=== PATIENT | male | born 1950 | race Caucasian/White ===

== ENCOUNTER → 2020-07-07 10:41 | Outpatient (BNVA) | payer OTHER, SELFPAY | PROVIDERS: Referring Provider Family Medicine; Visit Provider Specialist | DX: M19.011 Primary osteoarthritis, right shoulder (principal); M25.512 Pain in left shoulder; M25.511 Pain in right shoulder | CPT/HCPCS: 73030 ==

== ENCOUNTER 2020-07-09 20:00 | Outpatient (CLI) | payer OTHER, SELFPAY | END 2020-07-09 20:01 | disposition home or self-care (01) | LOC: SLEEP 07-10 08:30 | PROVIDERS: Visit Provider Emergency Medicine Emergency Medical Services | DX: G47.33 Obstructive sleep apnea (adult) (pediatric) (principal) | CPT/HCPCS: 95810 ==

== ENCOUNTER 2020-07-10 08:30 | Outpatient (RCR) | payer OTHER, SELFPAY | END 2020-07-27 23:59 | disposition home or self-care (01) | LOC: SPT 08:30 | PROVIDERS: PCP Emergency Medicine Emergency Medical Services; Referring Provider Specialist; Visit Provider Specialist | DX: M25.512 Pain in left shoulder (principal); M25.511 Pain in right shoulder | CPT/HCPCS: 97110; 97161 ==

== ENCOUNTER 2020-07-28 06:00 | Outpatient (RCR) | payer OTHER, SELFPAY | END 2020-08-27 23:59 | disposition home or self-care (01) | LOC: SPT 06:00 | PROVIDERS: PCP Emergency Medicine Emergency Medical Services; Referring Provider Specialist; Visit Provider Specialist | DX: M25.512 Pain in left shoulder (principal); M25.511 Pain in right shoulder | CPT/HCPCS: 97110 ==

== ENCOUNTER 2020-07-29 20:00 | Outpatient (CLI) | payer OTHER, SELFPAY | END 2020-07-29 20:01 | disposition home or self-care (01) | LOC: SLEEP 07-30 08:52 | PROVIDERS: PCP Emergency Medicine Emergency Medical Services; Visit Provider Emergency Medicine Emergency Medical Services | DX: G47.33 Obstructive sleep apnea (adult) (pediatric) (principal) | CPT/HCPCS: 95811 ==

== ENCOUNTER 2020-08-28 06:00 | Outpatient (RCR) | payer OTHER, SELFPAY | END 2020-09-26 23:59 | disposition home or self-care (01) | LOC: SPT 06:00 | PROVIDERS: PCP Emergency Medicine Emergency Medical Services; Referring Provider Specialist; Visit Provider Specialist | DX: M25.512 Pain in left shoulder (principal); M25.511 Pain in right shoulder | CPT/HCPCS: 97110 ==

== ENCOUNTER 2020-10-18 19:23 | Inpatient (IN) | payer OTHER, MEDICARE, SELFPAY ==
[2020-10-18] VITALS (19 sets, daily range): BP systolic 115–175; BP diastolic 68–102; PULSE 76–90; RESP 14–26; TEMP 36.7; O2SAT 95–99; BMI 30.4
--- NOTE | 2020-10-18 19:31 | ECG_ITS ---
[facility] Test Date: 2020-10-18 Pat Name: Bhavik Gaffney Department: Room: Gender: Male Air Director: : 1950 Requested By: Jhony Bernabe Order Number: [id number] Shira MD: Triston Giron M.D. Measurements Intervals [place] Rate: 83 P: 64 MT: 173 QRS: 77 QRSD: 90 T: 70 QT: 347 QTc: 410 Interpretive Statements SINUS RHYTHM ST ELEVATION, CONSIDER INFERIOR INJURY [MARKED ST ELEVATION W/O NORMALLY INFLECTED T WAVE IN II/aVF] ACUTE HI No previous ECG available for comparison Electronically Signed On 10-19-2020 15:34:10 CDT by Triston Giron M.D. [id number] f
--- NOTE | 2020-10-18 19:31 | XRR_ITS ---
PROCEDURE INFORMATION: Exam: XR Chest Exam date and time: 10/18/2020 7:34 PM Age: 70 years old Clinical indication: Pain; Chest pressure; Additional info: Cp TECHNIQUE: Imaging protocol: XR of the chest. Views: 1 view. COMPARISON: No relevant prior studies available. FINDINGS: Lungs: Unremarkable. No consolidation. Pleural spaces: Unremarkable. No pleural effusion. No pneumothorax. Heart/Mediastinum: Mild cardiomegaly. Bones/joints: Unremarkable. XR/XR chest 1V portable 23140 IMPRESSION: 1. Negative for infiltrate. 2. Mild cardiomegaly.
[2020-10-18 19:47] LABS: Basophils % 0.3 %; Eosinophils # 0.2 10^3/uL (0.0-0.8); Eosinophils % 2.4 %; Hemoglobin 16.2 g/dL (11.7-16.6); Lymphocytes # 0.5 10^3/uL (0.8-4.8); Lymphocytes % 7.6 %; Mean Corpuscular HGB Conc 34.5 g/dL (30.0-36.0); Mean Corpuscular Volume 92.7 fL (80-94); Mean Platelet Volume 9.8 fL (7.4-10.4); Monocytes # 0.4 10^3/uL (0.2-0.9); Monocytes % 6.3 %; Neutrophils # 5.77 10^3/uL (1.8-7.7); Neutrophils % 83.1 %; Nucleated Red Blood Cells % 0 %; Platelet Count 136 10^3/cmm (130-400); Red Blood Count 5.07 10^6/uL (4.1-5.3); Red Cell Distribution Width 13.1 % (12.1-15.1)
[2020-10-18] MEDS: clopidogrel 300 mg Tablet 600 MG PO (19:48)
[2020-10-18] MEDS: aspirin 81 mg Chew Tablet PO ×3 (19:48)
[2020-10-18] MEDS: heparin 5,000 unit/mL INJ 1 mL 4000 UNIT IVP (19:49)
[2020-10-18] MEDS: heparin drip 25,000 UNIT/500 ML PREMIX 25.4 UNIT IV (19:58)
[2020-10-18 20:04] LABS: Troponin(5th) Baseline 34 ng/L (0-15)
[2020-10-18 20:07] LABS: Alanine Aminotransferase 21 U/L (0-41); Albumin Level 4.4 g/dL (3.5-5.2); Alkaline Phosphatase 136 IU/L (40-130); Anion Gap 21.1 (5-19); Aspartate Amino Transferase 23 U/L (0-40); Blood Urea Nitrogen 17 mg/dL (8-23); Calcium 9.1 mg/dL (8.5-10.5); Carbon Dioxide 16 mmol/L (22-29); Chloride 104 mmol/L (98-107); Globulin 2.9 g/dL (1.3-4.6); Glucose 174 mg/dL (65-115); Osmolality Calculated 290 mOsm/kg (285-295); Potassium 4.1 mmol/L (3.5-5.1); Sodium 137 mmol/L (136-145); Total Bilirubin 0.6 mg/dL (0.15-1.2); Total Protein 7.3 g/dL (6.6-8.7)
--- NOTE | 2020-10-18 20:11 | P.HP_ITS ---
Providers/Chief Complaint Admitting Physician: Triston Giron MD/ Cardiology Primary Care Provider: Paul Stewart DO Chief Complaint: chest pain History of Present Illness Bhavik Gaffney is a 70 year old male with past medical history of hypertension, hyperlipidemia and diabetes who has presented with chest pain symptoms. According to patient he has been having chest pain on and off since last night. It got worse this evening and he called the MD nurse who advised him to come to the ER. According to patient he is currently having chest pain however it has decreased in intensity. EKG demonstrates inferior lead ST elevations with reciprocal changes. STEMI was activated. 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 He underwent successful revascularization with ANDRIY x1. He is proximal to mid LAD has severe 70 to 75% stenosis. This will be planned for revascularization as a staged procedure. Review of Systems General: Reports: 10 or more systems reviewed and unremarkable except in HPI and below Narrative: CONSTITUTIONAL: No fever chills weight loss or gain or night sweats. [] HEENT: Normocephalic, atraumatic.[] RESPIRATORY: No cough, sputum, hemoptysis or wheezing.[] CARDIOVASCULAR: Has chest pain, no PND, orthopnea, lower extremity edema, pres yncope or syncope. [] GI: no nausea vomiting diarrhea. [] FIELD BROOMER: No numbness, tingling, weakness or loss of function in any part of the body. [] MUSCULOSKELETAL: No knee or joint pain or rashes. [] Medications/Allergies Home Medications Medication Instructions Recorded Confirmed Last Taken Type acetaminophen 500 mg tablet 500 mg PO QID PRN 07/07/20 09/11/20 Unknown History amlodipine 10 mg tablet 10 mg PO DAILY 07/07/20 09/11/20 Unknown History aspirin 81 mg tablet,delayed 81 mg PO DAILY 07/07/20 09/11/20 Unknown History release cholecalciferol (vitamin D3) 1,250 PO 07/07/20 09/11/20 Unknown History mcg (50,000 unit) tablet gabapentin 300 mg capsule 300 mg PO TID 07/07/20 09/11/20 Unknown History insulin aspart U-100 100 unit/mL 20 unit SUBCUT BID 07/07/20 09/11/20 Unknown History (3 mL) subcutaneous pen insulin glargine 100 unit/mL (3 20 unit SUBCUT BID 07/07/20 09/11/20 Unknown H istory mL) subcutaneous pen levothyroxine 125 mcg capsule 125 mcg PO DAILY 07/07/20 09/11/20 Unknown History losartan 50 mg tablet 50 mg PO DAILY 07/07/20 09/11/20 Unknown History melatonin 3 mg capsule 3 mg PO DAILY 07/07/20 09/11/20 Unknown History mirtazapine 15 mg tablet 15 mg PO DAILY 07/07/20 09/11/20 Unknown History omeprazole 20 mg tablet,delayed 20 mg PO DAILY 07/07/20 09/11/20 Unknown History release simvastatin 10 mg tablet 10 mg PO DAILY 07/07/20 09/11/20 Unknown History topiramate 50 mg tablet 50 mg PO BID 07/07/20 09/11/20 Unknown History Allergies Allergy/AdvReac Type Severity Reaction Status Date / Time No Known Allergies Allergy Verified 10/18/20 19:45 PFSH Acute PFSH: Medical History Diabetes Diverticul disease small and large intestine, no perforati or abscess Hernia Hyperlipidemia Hypertension Squamous cell cancer of scalp and skin of neck Surgical History History of bowel resection Family History Father Suicide Psychiatric illness Mother Cancer Hypertension Social History Smoking and tobacco status: former smoker Alcohol intake: current Desire information about alcohol rehabilitation?: No Counseling given: No Vitals/I&O/Wt Last Vital Signs Temp 98.1 F 10/18/20 19:35 Pulse 80 10/18/20 20:07 Resp 16 10/18/20 20:07 BP 139/68 10/18/20 20:07 Pulse Ox 97 10/18/20 20:07 Weight last 48 hrs Weight 200 lb Physical Exam Narrative: EXAM NARRATIVE: GENERAL: Patient is alert, awake and oriented x3. [] NECK: No jugular vein distension. [] HEENT: No cyanosis. No icterus. No pallor. [] HEART: Regular S1 and S2. No murmur, rub or gallop. [] LUNGS: Clear to auscultate bilaterally. [] ABDOMEN: Soft, nontender and nondistended. Positive bowel sounds. No guarding, rebound or tenderness. [] CENTRAL NERVOUS SYSTEM: Grossly nonfocal. [] EXTREMITIES: Lower extremities with no edema bilaterally. Pulses palpable in the lower extremities, both dorsalis pedis and posterior tibial. [] Data : 10/18/20 19:13 10/18/20 19:13 A&P Assessment and plan (1) Acute ST elevation myocardial infarction: Status: Acute (2) Hyperlipidemia: Status: Acute (3) Hypertension: Status: Acute (4) Diabetes: Status: Acute EKG demonstrates acute inferior ST elevation PR. 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 He underwent successful revascularization with ANDRIY x1. He has residual severe proximal to mid LAD stenosis. This will be revascularized as a staged procedure as outpatient. Continue aspirin and Plavix Statin therapy. According to patient he has not tolerated atorvastatin and is currently on simvastatin. Order echocardiogram Patient will be referred to cardiac rehab at discharge. We will have sliding scale insulin for diabetes management Attestations Medical Necessity Statement*: Care expected to cross 2 midnights. Patient had presented with acute ST elevation PR and underwent successful revascularization with ANDRIY x1 to mid left circumflex artery. Coding Level of Care Code Acute Sales Representative Electric Service for Meliton Farr Diagnoses Acute ST elevation myocardial infarction I21.3 Hyperlipidemia E78.5 Hypertension I10 Diabetes E11.9
--- NOTE | 2020-10-18 20:12 | XACV_ITS ---
Ht: 173 cm Wt: 91 kg BSA: 2.11 m2 Gender: Male : 1950 Exam Priority: Routine Procedure(s): Procedure Description: Left Heart Catheterization Procedure Description: Primary PCI of mid Left circumflex artery Procedure Description: Coronary angiogram Diagnostic Cath Status: Emergency Diagnostic Findings * Mid Circumflex: total thrombotic occlusion, SAV: 0 flow. This is the culprit vessel for the STEMI. * Mid Left Anterior Descending: severe obstructive 70-75% stenosis, SAV: 3 flow. * Left Main has no disease. * Proximal Right Coronary Artery: moderate 50% stenosis, SAV: 3 flow. * Coronary angiography shows right dominance. PCI Status: Emergency PCI Indication: STEMI - Immediate PCI for STEMI Interventional Findings * Procedure details: We engaged left main artery with a XB 3.5 guide catheter. IV heparin was administered to maintain an ACT above 250 seconds. A 0.014 run-through guidewire was used to cross the stenosis and was placed in distal vessel. 2.5 x 12 mm semicompliant balloon was used to predilate the stenosis. This was followed by placement of 4.0 x 18 mm resolute Anjali drug-eluting stent. At this time final angiogram was performed that showed excellent stent expansion, SAV-3 flow and no residual stenosis. Guidewire and guide catheter were removed. Patient left the Casting Sorter in a stable condition. * Mid Circumflex: 100% stenosis treated with a AB TREK 2.50X12 RX BALLOON, and MDT R ANJALI 4.0X18 ANDRIY. 0% residual stenosis, SAV: 3 flow. Conclusions 1. There is total thormbotic occlusion of mid left circumflex artery. 2. Severe proximal to mid LAD stenosis. 3. Moderate proximal RCA stenosis. 4. Mid Circumflex was treated with a Balloon, and Drug Eluting Stent. Recommendations * Transfer to [facility]SU. * Aspirin and Plavix for atleast 1 year. * High intensity statin therapy. * Patient will need staged PCI of the proximal to mid LAD in 4-6 weeks. * Outpatient cardiology follow up in 4-6 weeks. Interventional RX Recommendation: PCI w/o planned CABG Diagnostic RX Recommendation: PCI w/o planned CABG Anticoagulation: Heparin Pressures Phase:Rest AO : 114 / 61 ( 85 ) @ 3:24:00 AM Clinical Evaluation EBL: 5mL-10mL Procedural Details Pre-Procedure Time Out. Identified patient by full name and date of as verbalized by the patient/guarantor. Does the consent match the physician's order: N/A Emergent; Informed Consent not obtained due to time critical life threat. Accurate & Complete Informed Consent: N/A Emergent; Informed Consent not obtained due to time critical life threat. Inpatient/Outpatient History & Physical on Chart: N/A Emergent; Informed Consent not obtained due to time critical life threat. If H&P is completed, is and addenduem needed: N/A Emergent; Informed Consent not obtained due to time critical life threat; If yes, is the addendum complete: N/A Emergent; Informed Consent not obtained due to time critical life threat. Visualize and Verify Site with Patient/Guarantor: N/A. Relevant Radiology Images available: N/A Emergent; Informed Consent not obtained due to time critical life threat. Pre-op teaching completed and patient verbalized understanding. The risks, benefits, and alternatives of sedation and/or procedure were discussed by physician. The patient agrees to continue. Procedure started. Current diagnosis: STEMI. PERRLA. Strong, equal hand credit rating checker bilaterally. Lungs clear x 5 lobes. IV Site on Arrival: 18 gauge in the left anticubital. IV Site on Arrival: 18 gauge in the right anticubital. IV Fluids: 0.9% NaCl at KVO. 200 mL infused prior to rn cardiac cath. Oxygen started at 2liters/min via nasal canula. right groin was prepped with chloroprep then draped in the usual sterile fashion. right radial was prepped with chloroprep then draped in the usual sterile fashion. Baseline sample Acquired. HR: 94 BPM. Physician notified. Equipment: 6F - Radial. Cardiac Cath Pack. ACIST Manifold Kit Model BT 2000. Heparinized Saline (2 units/mL), 1000 mL bag. Physician arrived. Physician scrubbed in. Immediate Pre-Procedure Time Out. Correct Patient: Yes; Correct Procedure: Yes; Correct Site: Yes; Correct Patient Position: Yes; Correct Supplies: Yes; Dried Flammable Prep: Yes; Blood Products Available: N/A Emergent; Informed Consent not obtained due to time critical life threat;. Lidocaine 1% infiltrated to the right radial. Arterial access obtained. A 6 cymro TIG catheter in over wire. Multiple views taken of right coronary artery. Catheter redirected to the LCA. Multiple views taken of left coronary artery. Catheter inserted over the exchange wire. 6 cymro XB 3.5 guide catheter was inserted over the wire. Runthrough guidewire was advanced through the guide catheter to lesion in the mid Circ. Balloon inserted to lesion in the mid Circ. Inflation number : 1 A AB TREK 2.50X12 RX BALLOON was prepped and advanced across the Mid CX , then inflated to 8 DASHA for 0:09 seconds. Inflation number: 2 The AB TREK 2.50X12 RX BALLOON was reinflated across the Mid CX, to 12 DASHA for 0:31 seconds. Balloon out. Results checked. Stent inserted to lesion in the mid Circ. Inflation Number : 3 A DAIN R ANJALI 4.0X18 ANDRIY -Lot Number#[id number] was prepped and advanced across the Mid CX. The stent was deployed at 12 DASHA for 0:31 seconds. exp 2022-07-16. Results checked. Stent balloon out over wire. Wire out. Guide catheter out. ACT drawn. Results 205 seconds. Therapeutic limits - pre-heparin administration 90-150 seconds and monitoring heparin during a vascular procedure >250 seconds. TR band placed. Hemostasis obtained. Post-op diagnosis: stemi acute st mi. mid cix. Complications: none. Contrast type used: Omnipaque 300 mgI/mL, 500 mL bottle. PERRLA. Strong, equal hand credit rating checker bilaterally. No VTE prophylaxis required. Estimated blood loss: 5mL-10mL. Medication's Wasted: Lidocaine 1% = 18 mL. Medication's Wasted: Nitro = 48.9 mL. Total IV fluids: 75 mL. Medication's Wasted: Heparin = 3000 units. PCI Indication: STEMI. Procedure completed. Patient transferred by wheelchair to 1st floor. Vital chart was stopped. Access Site Site: Right Radial artery Sheath Size: 6 Fr Hemostasis Success: Unsuccessful Procedure Medications Start: 8:24 PM Stop: 8:24 PM Medication: Fentanyl Amount: 50 mcg Route: I.V. Start: 8:24 PM Stop: 8:24 PM Medication: Versed Amount: 1 mg Route: I.V. Start: 8:26 PM Stop: 8:26 PM Medication: Nitrogylcerin Amount: 200 mcg Route: I.A. Start: 8:26 PM Stop: 8:26 PM Medication: Versed Amount: 1 mg Route: I.V. Start: 8:28 PM Stop: 8:28 PM Medication: Heparin Amount: 6000 units Route: I.V. Start: 8:32 PM Stop: 8:32 PM Medication: Fentanyl Amount: 50 mcg Route: I.V. Start: 8:39 PM Stop: 8:39 PM Medication: Versed Amount: 1 mg Route: I.V. Start: 8:44 PM Stop: 8:44 PM Medication: Nitrogylcerin Amount: 200 mcg Route: I.C. Start: 8:44 PM Stop: 8:44 PM Medication: Aggrastat 12.5 mg/250 mL Amount: 46 ml Route: I.V. bolus Start: 8:47 PM Stop: 8:47 PM Medication: Versed Amount: 1 mg Route: I.V. Start: 8:55 PM Stop: 8:55 PM Medication: Heparin Amount: 2000 units Route: I.V. I, the attending physician, have reviewed and verified all procedure medications. Yes, all medications given per verbal order Report Signatures Finalized by Triston Giron MD on 10/31/2020 06:56 PM
--- NOTE | 2020-10-18 20:15 | NUR.SHIFT ---
PATIENT TRANSPORTED TO ELECTRIC METER INSPECTOR VIA CATH TEAM
--- NOTE | 2020-10-18 20:18 | ED_ITS ---
HPI - Chest Pain General: Chief Complaint: Chest Pain Stated Complaint: chest pain Time Seen by Provider: 10/18/20 19:35 History of Present Illness: HPI narrative: The patient is a 70-year-old male who comes to the ER complaining of left-sided chest pain that radiates to his left shoulder and left jaw. He said it started yesterday and reports it as a pressure sensation 6 out of 10. He denies previous myocardial infarction history. History of diabetes as well. EKG shows inferior ST [facility]. STEMI alert activated as soon as the EKG was printed. Discussed with Dr. Giron who is in route and recommends Plavix and heparin. complaint: chest pain Onset (ago): hour(s) (24) Timing of current episode: constant Onset: during rest Pain location: left chest Pain radiation: left arm and left shoulder Severity: moderate Pain scale (0-10): 6 Quality: other (Pressure) Relieving factors: rest Exacerbating factors: exertion Associated symptoms: Reports dyspnea and nausea; Deny palpitations Treatment prior to arrival: aspirin (Baby aspirin) Review of Systems General: Reports: 10 or more systems reviewed and unremarkable except in HPI and below Const: Denies: fatigue Eyes: Denies: change in vision, blurry vision or eye redness ENMT: Denies: throat pain, swelling of lips/tongue, ear or mastoid pain or nasal congestion Card: Reports: chest pain; Denies: palpitations, irregular heart rhythm, edema, dyspnea on exertion or orthopnea Resp: Reports: dyspnea GI: Reports: nausea : Denies: flank pain, urinary frequency or urinary urgency Musc: Denies: neck pain, back pain, extremity pain, joint pain, joint redness, limited range of motion or muscle weakness Skin/Breast: Denies: rash, pruritus, erythema, skin pain or skin tenderness Neuro: Denies: headache(s), numbness in extremities, weakness in extremities, sensory changes, difficulty walking, dizziness, confusion or Slurred speech present Psych: Denies: anxiety or depression Endo: Denies: polyuria All/Imm: Denies: urticaria, throat swelling or tongue swelling PFS ED PFSH: Medical History (Updated 10/18/20 @ 20:23 by Damon Nava MD) Diabetes Diverticul disease small and large intestine, no perforati or abscess Hernia Hyperlipidemia Hypertension Squamous cell cancer of scalp and skin of neck Surgical History History of bowel resection Family History Father Suicide Psychiatric illness Mother Cancer Hypertension Social History Smoking and tobacco status: former smoker Alcohol intake: current Desire information about alcohol rehabilitation?: No Counseling given: No Physical Exam Const: COMMON NORMALS: no acute distress, average body habitus, patient oriented x3, no limitations, healthy appearing, alert and well nourished GENERAL APPEARANCE: cooperative, comfortable, well kempt and well developed ORIENTATION/CONSCIOUSNESS: Yes awake, Yes oriented to person, Yes oriented to place and Yes oriented to time HENMT: COMMON NORMALS: normocephalic, external ears normal and Normal external nose present HEAD & SCALP: normal to inspection and normocephalic NOSE: Normal external nose present EXTERNAL EAR: Yes external ears normal MOUTH: Normal oral and palatal mucosa present THROAT: posterior oropharynx normal Eye: COMMON NORMALS: Equal, round and reactive pupils present and EOMs intact bilaterally GENERAL EYE: appearance normal, both eyes and all related structures PUPIL: Yes Equal, round and reactive pupils present Neck/C-Spine: COMMON NORMALS: full ROM, no lymphadenopathy, no meningeal signs and no JVD GENERAL: Yes normal visual inspection Lymph: LYMPHATIC: no lymphadenopathy noted Chest: COMMONS NORMALS: normal inspection of the chest and normal palpation of entire chest wall Resp: COMMON NORMALS: normal respiratory effort, No retractions, No use of accessory muscles, clear to auscultation bilaterally and percussion normal EFFORT & INSPECTION: Yes able to speak in complete sentences AUSCULTATION: clear to auscultation bilaterally PERCUSSION: percussion normal Cardio: COMMON NORMALS: no JVD, regular rate, regular rhythm, S1 normal heart sound present, S2 normal heart sound present and Peripheral pulses 2+ throughout RATE: regular rate RHYTHM: regular rhythm HEART SOUNDS: S1 normal heart sound present and S2 normal heart sound present PERIPHERAL PULSES: Peripheral pulses 2+ throughout GI: COMMON NORMALS: Normal to inspection, nondistended, normoactive bowel sounds present, Soft to palpation, non-tender and no masses INSPECTION: Yes normal to inspection PALPATION: Yes Soft to palpation : COMMON NORMALS: Yes no CVA tenderness BLADDER/KIDNEY EXAM: Yes no CVA tenderness Back/Pelvis: COMMON NORMALS: no CVA tenderness, thoracic and lumbar spine normal to inspection, no thoracic nor lumbar tenderness and thoraco-lumbar ROM normal Extremity: COMMON NORMALS: normal to inspection, full ROM, capillary refill normal, no joint enlargement and no pedal edema GENERAL: Yes normal exam except as noted Neuro: COMMON NORMALS: patient oriented x3, CN's II-XII intact bilaterally, moves all extremities, no focal motor deficits, no sensory deficits noted and gait normal SENSORIUM/ORIENTATION: Yes alert, Yes oriented to person, Yes oriented to place and Yes oriented to time MENINGEAL SIGNS: Yes no meningeal signs Psych: COMMON NORMALS: mental status grossly normal, Normal thought process present, cooperative, normal affect and speech normal APPEARANCE: Yes well kempt ATTITUDE: Yes calm SPEECH: Yes normal speech THOUGHT PROCESS: Normal thought process present Skin: COMMON NORMALS: no rashes or lesions noted GENERAL SKIN EXAM: no rashes or lesions noted Course Vital Signs: Vital signs: Vital Signs Temperature 98.1 F 10/18/20 19:35 Pulse Rate 81 10/18/20 20:13 Respiratory Rate 14 10/18/20 20:13 Blood Pressure 156/86 10/18/20 20:13 Pulse Oximetry 98 10/18/20 20:13 MDM - Chest Pain MDM Narrative: Medical decision making narrative: The patient came in complaining of left chest pain and EKG shows inferior STEMI. STEMI alert was activated immediately upon seeing the EKG when it was printed. Discussed with Dr. Giron who recommended aspirin, Plavix, heparin which was given. After rest the patient's pain subsided from a 6 to a 2. He was wheeled away to the Head Up Operator Helper in stable condition. Lab Data: Labs: Lab Results 10/18/20 10/18/20 10/18/20 Range/Units 19:13 19:13 19:13 WBC 7.0 (4.0-10.0) 10^3/ uL Corrected WBC Store Stock Associate RBC 5.07 (4.1-5.3) 10^6/u L Hgb 16.2 (11.7-16.6) g/dL Hct 47.0 (42.0-52.0) % MCV 92.7 (80-94) fL MCH 32.0 (28.0-34.0) pg MCHC 34.5 (30.0-36.0) g/dL RDW 13.1 (12.1-15.1) % Plt Count 136 (130-400) 10^3/c mm MPV 9.8 (7.4-10.4) fL Gran % Store Stock Associate Neut % (Auto) 83.1 % Lymph % (Auto) 7.6 % Emanuel % (Auto) 6.3 % Eos % (Auto) 2.4 % Baso % (Auto) 0.3 % Neut # (Auto) 5.77 (1.8-7.7) 10^3/u L Lymph # (Auto) 0.5 L (0.8-4.8) 10^3/u L Emanuel # (Auto) 0.4 (0.2-0.9) 10^3/u L Eos # (Auto) 0.2 (0.0-0.8) 10^3/u L Baso # (Auto) 0.0 (0.0-0.1) 10^3/u L Absolute Gran (aut o) Store Stock Associate Nucleated RBC % (a uto) 0 % Nucleated RBCs # 0.0 /100WBC Sodium 137 (136-145) mmol/L Potassium 4.1 (3.5-5.1) mmol/L Chloride 104 (98-107) mmol/L Carbon Dioxide 16 L (22-29) mmol/L Anion Gap 21.1 H (5-19) BUN 17 (8-23) mg/dL Creatinine 1.0 (0.7-1.2) mg/dL GFR Calculation Not Reportable Glucose 174 H (65-115) mg/dL Calculated Osmolal ity 290 (285-295) mOsm/k g Calcium 9.1 (8.5-10.5) mg/dL Total Bilirubin 0.6 (0.15-1.2) mg/dL AST 23 (0-40) U/L ALT 21 (0-41) U/L Alkaline Phosphata se 136 H (40-130) IU/L Troponin T Baselin e 34 H (0-15) ng/L Total Protein 7.3 (6.6-8.7) g/dL Albumin 4.4 (3.5-5.2) g/dL Globulin 2.9 (1.3-4.6) g/dL Discharge Plan Discharge Patient Disposition: Admitted As Inpatient Clinical Impression: ST elevation myocardial infarction (STEMI) Coding Level of Care Code ED Pipe Threader for Meliton Farr
--- NOTE | 2020-10-18 21:15 | PC.NURSE ---
Received patient from Club Licensee @ 2114. Patient is alert and oriented. Report received from Sheeba GUARDADO. TR Band in place and inflated. Right hand is warm to touch with brisk cap refill. Palpable radial pulse. No hematoma present. Instructed patient to notify nurse of pain, bleeding, numbness, or other concerns. Patient verbalized understanding.
[2020-10-18 21:17] LABS: Glucose Point of Care 168 mg/dL (70-110)
[2020-10-18] MEDS: sodium chloride 0.9% 1,000 ML 100 ML IV (22:11)
--- NOTE | 2020-10-18 22:11 | PC.NURSE ---
Spoke with Dr Giron to clarify order for heparin drip. Received telephone order to discontinue heparin orders. RBVO
[2020-10-18] MEDS: metoprolol tartrate 25 mg Tablet PO (22:12)
[2020-10-18] MEDS: lisinopril 10 mg Tablet PO (22:12)
[2020-10-19] VITALS (34 sets, daily range): BP systolic 102–163; BP diastolic 70–101; PULSE 63–83; RESP 10–32; TEMP 36.6–36.9; O2SAT 94–98
[2020-10-19] MEDS: sodium chloride 0.9% 1,000 ML 100 ML IV (06:29)
[2020-10-19 06:41] LABS: Glucose Point of Care 124 mg/dL (70-110)
--- NOTE | 2020-10-19 06:54 | PC.NURSE ---
Patient has a quarter size area of bruising with swelling, the area is slightly raised and is soft. Patient denies pain to site. Information passed to oncoming day shift nurse.
[2020-10-19] MEDS: clopidogrel 75 mg Tablet PO (08:12)
[2020-10-19] MEDS: metoprolol tartrate 25 mg Tablet PO ×2 (08:12→20:49)
[2020-10-19] MEDS: aspirin 81 mg EC Tablet PO (08:12)
--- NOTE | 2020-10-19 09:17 | USCV_ITS ---
Bhavik Gaffney Age: 70 Gender: M : 1950 Exam Date: 10/19/2020 12:59 Ordering Phys: Triston Giron M.D ([email or web address]) Technologist: KIANNA [place] [facility] [place]: Poat STEMI BP: 130 / 71 HR: 63 Rhythm: Sinus Technical Quality: Fair MEASUREMENTS (Male / Female) Normal Values 2D ECHO LV Diastolic Diameter PLAX 3.8 cm 4.2 - 5.9 / 3.9 - 5.3 cm LV Systolic Diameter PLAX 2.5 cm LV Chamber Size 4.5 cm IVS Diastolic Thickness 1.3 cm 0.6 - 1.0 / 0.6 - 0.9 cm IVS Systolic Thickness 2.1 cm LVPW Diastolic Thickness 1.5 cm 0.6 - 1.0 / 0.6 - 0.9 cm LVPW Systolic Thickness 1.4 cm RV Chamber Size 3.4 cm LVOT Diameter 1.9 cm LV Ejection Fraction 2D Teich 63.2 % LV Ejection Fraction MOD 2C 64.9 % LV Ejection Fraction 2C AL 64.0 % LA Diameter 3.0 cm LA Width 2.7 cm LA Height 4.8 cm RA Width 3.0 cm RA Height 4.0 cm Aorta at Sinotubular Diameter 3.4 cm M-MODE LV Diastolic Diameter MM 5.7 cm 4.2 - 5.9 / 3.9 - 5.3 cm LV Systolic Diameter MM 4.0 cm LV Ejection Fraction MM Teich 54.7 % IVS Diastolic Thickness MM 1.1 cm 0.6 - 1.0 / 0.6 - 0.9 cm IVS Systolic Thickness MM 1.3 cm LVPW Diastolic Thickness MM 1.6 cm 0.6 - 1.0 / 0.6 - 0.9 cm LVPW Systolic Thickness MM 1.9 cm Aortic Annulus Diameter 3.9 cm LA Ao Ratio MM 1.0 MV E Point Septal Separation 0.7 cm DOPPLER AV Peak Velocity 111.0 cm/s LVOT Peak Velocity 103.0 cm/s AV Area Cont Eq vti 2.7 cm squared AV Area Cont Eq pk 2.6 cm squared MV Area PHT 3.9 cm squared Mitral E to A Ratio 1.3 MV E' Velocity 45.0 cm/s Mitral E to MV E' Ratio 12.5 Mitral E to LV E' Lateral Ratio 13.3 Mitral E to LV E' Septal Ratio 11.8 TR Peak Velocity 301.0 cm/s TR Peak Gradient 36.2 mmHg TV Peak E Velocity 45.0 cm/s Right Atrial Pressure 3.0 mmHg Pulmonary Artery Systolic Pressu 39.2 mmHg PV Peak Velocity 72.0 cm/s RV Acceleration Time 0.1 s RV Ejection Time 0.3 s RV AcT/ET 0.3 FINDINGS Left Ventricle Normal left ventricular size. LV systolic function is normal with EF of 55-60%. No egional wall motion abnormalities. Diastolic function is normal Right Ventricle The right ventricle is normal in size and function. Right Atrium The right atrium is normal in size. Left Atrium The left atrium is normal in size. Mitral Valve Structurally normal mitral valve without significant stenosis or prolapse. There is trace mitral regurgitation. Aortic Valve Structurally normal aortic valve without significant sclerosis or stenosis. There is trace aortic regurgitation. Tricuspid Valve Structurally normal tricuspid valve without significant stenosis. Mild tricuspid regurgitation. RVSP is normal Pulmonic Valve Structurally normal pulmonic valve without significant stenosis. There is no pulmonic regurgitation. Pericardium Normal pericardium without effusion. Aorta Normal ascending aorta dimension. CONCLUSIONS LV systolic function is normal with EF of 55-60% Diastolic function is normal Trace mitral regurgitation. Trace aortic regurgitation Mild tricuspid regurgitation No comparison studies are available Triston Giron MD (Electronically Signed) Final Date: 19 Oct 2020 14:43 S
--- NOTE | 2020-10-19 09:20 | PM.PN ---
Subjective Subjective: Interval history: Patient is doing well. Denies any complaints of chest pain, shortness of breath or palpitations. No arrhythmias since revascularization last night. Vitals/I&O/Wt Last Vital Signs Temp 98.4 F 10/19/20 07:35 Pulse 69 10/19/20 07:35 Resp 22 H 10/19/20 07:35 BP 128/77 10/19/20 07:35 Pulse Ox 94 10/19/20 07:35 10/18/20 10/19/20 10/19/20 22:59 06:59 14:59 Intake Total 264.77 / 264.77 Balance 264.77 / 264.77 Weight last 48 hrs Weight 200 lb Physical Exam Narrative: EXAM NARRATIVE: GENERAL: Patient is alert, awake and oriented x3. [] NECK: No jugular vein distension. [] HEENT: No cyanosis. No icterus. No pallor. [] HEART: Regular S1 and S2. No murmur, rub or gallop. [] LUNGS: Clear to auscultate bilaterally. [] ABDOMEN: Soft, nontender and nondistended. Positive bowel sounds. No guarding, rebound or tenderness. [] CENTRAL NERVOUS SYSTEM: Grossly nonfocal. [] EXTREMITIES: Lower extremities with no edema bilaterally. Pulses palpable in the lower extremities, both dorsalis pedis and posterior tibial. [] Data : 10/18/20 19:13 10/18/20 19:13 A&P Assessment and plan (1) Acute ST elevation myocardial infarction: Status: Acute (2) Hyperlipidemia: Status: Acute (3) Hypertension: Status: Acute (4) Diabetes: Status: Acute EKG demonstrates acute inferior ST elevation UT. 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 He underwent successful revascularization with ANDRIY x1. He has residual severe proximal to mid LAD stenosis. This will be revascularized as a staged procedure as outpatient. Continue aspirin and Plavix Statin therapy. According to patient he has not tolerated atorvastatin and is currently on simvastatin. Echocardiogram is pending Telemetry monitoring Patient will be referred to cardiac rehab at discharge. Sliding scale insulin for diabetes control Attestations Medical Necessity Statement*: Care expected to cross 2 midnights. Patient had presented with acute ST elevation UT last night and is status post revascularization of left circumflex artery with ANDRIY x1. Coding Level of Care Code Acute Supervisor/Port Director for Khurramg Fwd Diagnoses Acute ST elevation myocardial infarction I21.3 Hyperlipidemia E78.5 Hypertension I10 Diabetes E11.9
[2020-10-19 11:36] LABS: Glucose Point of Care 159 mg/dL (70-110)
[2020-10-19 12:41] LABS: Basophils % 0.3 %; Eosinophils # 0.1 10^3/uL (0.0-0.8); Eosinophils % 1.4 %; Hematocrit 44.2 % (42.0-52.0); Hemoglobin 15.1 g/dL (11.7-16.6); Lymphocytes # 0.6 10^3/uL (0.8-4.8); Lymphocytes % 8.6 %; Mean Corpuscular HGB Conc 34.2 g/dL (30.0-36.0); Mean Corpuscular Hemoglobin 32.1 pg (28.0-34.0); Mean Platelet Volume 10.2 fL (7.4-10.4); Monocytes # 0.6 10^3/uL (0.2-0.9); Monocytes % 7.9 %; Neutrophils # 5.75 10^3/uL (1.8-7.7); Neutrophils % 81.5 %; Nucleated Red Blood Cells % 0 %; Platelet Count 147 10^3/cmm (130-400); Red Cell Distribution Width 13.3 % (12.1-15.1); White Blood Count 7.1 10^3/uL (4.0-10.0)
[2020-10-19 13:04] LABS: Blood Urea Nitrogen 17 mg/dL (8-23); Calcium 8.4 mg/dL (8.5-10.5); Carbon Dioxide 17 mmol/L (22-29); Chloride 105 mmol/L (98-107); Chol HDL Ratio 4.77 mg/dL (1.0-5.00); Cholesterol 124 mg/dL (0-200); Glucose 147 mg/dL (65-115); HDL Cholesterol 26 mg/dL (60-100); LDL Cholesterol Calculated 58 mg/dL (50-129); LDL HDL Ratio 2.23 RATIO (0.00-3.22); Osmolality Calculated 284 mOsm/kg (285-295); Sodium 135 mmol/L (136-145); Triglycerides 200 mg/dL (0-150)
[2020-10-19 16:04] LABS: Glucose Point of Care 127 mg/dL (70-110)
[2020-10-19 20:56] LABS: Glucose Point of Care 140 mg/dL (70-110)
--- NOTE | 2020-10-19 22:32 | ECG_ITS ---
[facility] Test Date: 2020-10-18 Pat Name: Bhavik Gaffney Department: Room: 111 Gender: Male Director Of Strategic Partnerships: : 1950 Requested By: Triston Giron Order Number: [id number] Shira MD: Triston Giron M.D. Measurements Intervals [place] Rate: 83 P: 64 MI: 173 QRS: 77 QRSD: 90 T: 70 QT: 347 QTc: 410 Interpretive Statements SINUS RHYTHM ST ELEVATION, CONSIDER INFERIOR INJURY [MARKED ST ELEVATION W/O NORMALLY INFLECTED T WAVE IN II/aVF] ACUTE [place] No previous ECG available for comparison Electronically Signed On 10-20-2020 16:22:09 CDT by Triston Giron M.D. [id number]
[2020-10-19] MEDS: lisinopril 10 mg Tablet PO (23:28)
[2020-10-20] VITALS: BP 110/57; PULSE 62; RESP 14; TEMP 36.8; O2SAT 99
[2020-10-20 04:00] VITALS: BP 112/62; PULSE 59; RESP 16; TEMP 36.6; O2SAT 96
[2020-10-20 05:34] VITALS: PULSE 54
[2020-10-20 06:59] LABS: Glucose Point of Care 127 mg/dL (70-110)
[2020-10-20 07:45] VITALS: BP 137/71; PULSE 65; RESP 26; TEMP 36.5; O2SAT 96
[2020-10-20] MEDS: clopidogrel 75 mg Tablet PO (08:01)
[2020-10-20] MEDS: aspirin 81 mg EC Tablet PO (08:01)
[2020-10-20] MEDS: lisinopril 10 mg Tablet PO (08:01)
--- NOTE | 2020-10-20 08:36 | PC.NURSE ---
Dr. Senior notified that patient is sinus [place] HR 55-60s, BP 137/71. Metoprolol 25 mg due now. Telephone order from physician to hold medication at this time. RBTO.
--- NOTE | 2020-10-20 09:10 | P.DS_ITS ---
Discharge Providers Date of Admission: 10/18/20 21:40 Date of Discharge: October 20, 2020 Attending Provider at Admission: Triston Giron M.D Attending Provider at Discharge: Jessica Senior MD Primary Care Provider: Paul Stewart DO Diagnoses at Discharge Discharge Diagnosis (1) Acute ST elevation myocardial infarction: Status: Acute (2) Hyperlipidemia: Status: Acute (3) Hypertension: Status: Acute (4) Diabetes: Status: Acute Reason for Visit Reason for Visit: chest pain Brief History: Bhavik Gaffney is a 70 year old male with past medical history of hypertension, hyperlipidemia and diabetes who has presented with chest pain symptoms. According to patient he was having chest pain on and off since night befotre arrival. He called the MI nurse who advised him to come to the ER. EKG demonstrated inferior lead ST elevations with reciprocal changes. STEMI was activated. Hospital Course Hospital Course Patient underwent emergent angiogram via right radial access by Dr. 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 He underwent successful revascularization with ANDRIY x1. He also has proximal to mid LAD severe 70 to 75% stenosis. The plan was for revascularization as a staged procedure. He feels well overall. No chest pains this morning. HR in 40-50's at night. He is eager to get discharged. Physical Exam Narrative: EXAM NARRATIVE: Gen: NAD, sitting comfortably in bed HEENT/Neck: PEERL, EOMI, No pallor or icterus RS: CTAB/L, No wheezing or rales. 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 ANALYST: AAOx 3, No FND Psych: normal mood and affect Discharge Data Data Completed and Pending: Completed Studies During Hospitalization Category Date Time Status XR chest 1V giuseppe ble [id number] Stat Exams 10/18/20 19:31 Completed CV echo complete* [id number] Routine Ultrasound 10/19/20 09:17 Completed Pending at discharge Category Date Time Status CHIEF PROJECTIONIST request for service Stat Exams 10/18/20 20:12 Taken Basic Metabolic P hannah Routine Lab 10/20/20 07:19 Ordered Labs from last 24 hours 10/20/20 10/19/20 10/19/20 06:48 20:41 15:57 WBC RBC Hgb Hct MCV MCH MCHC RDW Plt Count MPV Neut % (Auto) Lymph % (Auto) [place] % (Auto) Eos % (Auto) Baso % (Auto) Neut # (Auto) Lymph # (Auto) [place] # (Auto) Eos # (Auto) Baso # (Auto) Nucleated RBC % (a uto) Nucleated RBCs # Sodium Potassium Chloride Carbon Dioxide Anion Gap BUN Creatinine GFR Calculation Glucose POC Glucose 127 H 140 H 127 H Calculated Osmolal ity Calcium Triglycerides Cholesterol LDL Cholesterol, C alc HDL Cholesterol LDL/HDL Ratio Cholesterol/HDL Ra carlos manuel 10/19/20 10/19/20 10/19/20 12:25 12:25 11:31 WBC 7.1 RBC 4.70 Hgb 15.1 Hct 44.2 MCV 94.0 MCH 32.1 MCHC 34.2 RDW 13.3 Plt Count 147 MPV 10.2 Neut % (Auto) 81.5 Lymph % (Auto) 8.6 [place] % (Auto) 7.9 Eos % (Auto) 1.4 Baso % (Auto) 0.3 Neut # (Auto) 5.75 Lymph # (Auto) 0.6 L [place] # (Auto) 0.6 Eos # (Auto) 0.1 Baso # (Auto) 0.0 Nucleated RBC % (a uto) 0 Nucleated RBCs # 0.0 Sodium 135 L Potassium 4.0 Chloride 105 Carbon Dioxide 17 L Anion Gap 17.0 BUN 17 Creatinine 1.0 GFR Calculation Not Reportable Glucose 147 H POC Glucose 159 H Calculated Osmolal ity 284 L Calcium 8.4 L Triglycerides 200 H Cholesterol 124 LDL Cholesterol, C alc 58 HDL Cholesterol 26 L LDL/HDL Ratio 2.23 Cholesterol/HDL Ra carlos manuel 4.77 Vitals: Last Vital Signs Temp 97.7 F 10/20/20 07:45 Pulse 65 10/20/20 07:45 Resp 26 H 10/20/20 07:45 BP 137/71 10/20/20 07:45 Pulse Ox 96 10/20/20 07:45 Discharge Plan Discharge Patient Disposition: Home Condition: Stable Prescriptions: New clopidogrel 75 mg Tablet 75 mg PO DAILY Qty: 90 RF: 3 lisinopril 10 mg Tablet 10 mg PO DAILY Qty: 90 RF: 3 metoprolol tartrate 25 mg Tablet 25 mg PO BID@0900,2100 Qty: 120 RF: 3 Continued levothyroxine 125 mcg capsule 125 mcg PO DAILY RF: 0 insulin aspart U-100 [Novolog Flexpen U-100 Insulin] 100 unit/mL (3 mL) insulin pen 20 unit SUBCUT BID RF: 0 Lantus Solostar U-100 Insulin 100 unit/mL (3 mL) insulin pen 40 unit SUBCUT DAILY RF: 0 mirtazapine 15 mg tablet 15 mg PO BEDTIME RF: 0 melatonin 3 mg capsule 6 mg PO BEDTIME RF: 0 omeprazole 20 mg tablet,delayed release (DR/EC) 20 mg PO DAILY RF: 0 topiramate 50 mg tablet 50 mg PO BEDTIME RF: 0 gabapentin 300 mg capsule 300 mg PO TID RF: 0 aspirin 81 mg tablet,delayed release (DR/EC) 81 mg PO DAILY RF: 0 Vitamin D3 50 mcg (2,000 unit) Tablet 50 mcg PO DAILY RF: 0 Centrum Silver Men 300-600-300 mcg Tablet 1 tab PO DAILY RF: 0 Changed simvastatin 10 mg tablet 20 mg PO DAILY Qty: 0 RF: 0 Discontinued amlodipine 10 mg tablet 10 mg PO DAILY RF: 0 losartan 50 mg tablet 50 mg PO DAILY RF: 0 Discharge Orders: Discharge Order (Routine); Ordered 10/20/20 Ordered By: Jessica Senior Referrals: Triston Giron M.D [Physician] - 1 month (Please follow-up with Dr. Giron on December 04 at 1:45P.M. If you have any questions or need to reschedule. Please call ) Paul Stewart, DO [Primary Care Provider] - (Please follow-up with Dr. Stewart on October 24 at 9:00A.M. If you have any questions or need to reschedule. Please call ) Chelsie Medrano FNP [Nurse Practitioner] - 7-10 days (Please follow-up with Chelsie Medrano on SeptemberOctober 28 at 10:15A.M. If you have any questions or need to reschedule. Please call ) Discharge Diet: Cardiac and Diabetic Discharge Activity: Increase activity as tolerated Patient Instructions: Metoprolol (By mouth), Lisinopril (By mouth), Clopidogrel (By mouth), Left Heart Catheterization (DC), Chest Pain Stoplight, Post Angiogram Home Care Instructions Activity Restrictions/Additional Instructions: * Please do not lift more than 5 pounds of weight for the next 5 days. * Start on metoprolol tartrate 12.5 mg (1/2 tab of 25 mg) twice a day. * Blood pressure and heart rate log x 2 weeks. Discharge Attestations Time Spent in Discharge Care*: greater than 30 min Specific Discharge Activities: educating patient, documenting/other paperwork and evaluating patient/reviewing data Status at Discharge: Cognitive status at discharge: cognitively intact , Behavioral status at discharge: cooperative , Overall status at discharge: patient is back to baseline Quality Metrics Clinical Quality Measures During this hospital stay, did patient experience: AMI Clinical Trial Participant: No Contraindication to aspirin (AMI): Aspirin given Contraindication to statin: Statin prescribed Contraindication to PCI: PCI performed Coding Level of Care Code Acute Chg FW DC note Diagnoses Acute ST elevation myocardial infarction I21.3 Hyperlipidemia E78.5 Hypertension I10 Diabetes E11.9
[2020-10-20] MEDS: metoprolol tartrate 25 mg Tablet 12.5 MG PO (10:08)
[2020-10-20 10:25] LABS: Anion Gap 17.1 (5-19); Blood Urea Nitrogen 20 mg/dL (8-23); Calcium 8.5 mg/dL (8.5-10.5); Carbon Dioxide 17 mmol/L (22-29); Chloride 107 mmol/L (98-107); Glucose 132 mg/dL (65-115); Osmolality Calculated 288 mOsm/kg (285-295); Potassium 4.1 mmol/L (3.5-5.1); Sodium 137 mmol/L (136-145)
[2020-10-20 10:30] LABS: Estmated Average Glucose 111; Hemoglobin A1C 5.5 % (4.0-6.0)
--- NOTE | 2020-10-20 10:34 | PC.NURSE ---
Discharge instruction given per the physician's orders. Patient verbalized understanding of teaching and medication changes and did not have any further questions at this time. IVs have been removed. Patient dressed self. Dr. Senior notified labs are back. Waiting for clearance for dc. Nurse to continue to monitor.
--- NOTE | 2020-10-20 10:58 | PC.NURSE ---
Dr. Senior reviewed labs, patient cleared for discharge.
[2020-10-20 11:43] VITALS: BP 137/71; PULSE 65; RESP 26; TEMP 36.5; O2SAT 96
== END 2020-10-20 11:10 | disposition home or self-care (01) | DRG 247 ==
LOC: ER 20:09 → CSU 21:41
PROVIDERS: Emergency Medicine; Internal Medicine Cardiovascular Disease; Admitting Provider Internal Medicine; Emergency Provider Family Medicine; PCP Emergency Medicine Emergency Medical Services; Visit Provider Internal Medicine
PROC: 027034Z Dilation of Coronary Artery, One Artery with Drug-eluting Intraluminal Device, Percutaneous Approach (ICD-10-PCS; principal; 2020-10-18 20:00)
PROC: 027034Z Dilation of Coronary Artery, One Artery with Drug-eluting Intraluminal Device, Percutaneous Approach (ICD-10-PCS; 2020-10-18 20:00)
DX: I21.19 ST elevation (STEMI) myocardial infarction involving other coronary artery of inferior wall (principal); I10 Essential (primary) hypertension; I25.10 Atherosclerotic heart disease of native coronary artery without angina pectoris; E78.5 Hyperlipidemia, unspecified; E11.9 Type 2 diabetes mellitus without complications; Z87.891 Personal history of nicotine dependence; Z79.82 Long term (current) use of aspirin; Z79.4 Long term (current) use of insulin; Z85.828 Personal history of other malignant neoplasm of skin; Z87.19 Personal history of other diseases of the digestive system; Z90.49 Acquired absence of other specified parts of digestive tract
CPT/HCPCS: 36415; 36416; 71045; 80048; 80053; 80061; 82962; 83036; 84484; 85025; 85347; 93005; 93306; 93452; 96374; 96376; 99291; C1725; C1769; C1874; C1887; C1894; C9600; J1644; J2250; J3010; J3246; J3490; J7030; Q9967

== ENCOUNTER → 2020-10-28 11:29 | Outpatient (BNVA) | payer OTHER, MEDICARE, SELFPAY | PROVIDERS: PCP Emergency Medicine Emergency Medical Services; Visit Provider Nurse Practitioner Family | DX: I25.119 Atherosclerotic heart disease of native coronary artery with unspecified angina pectoris (principal) | CPT/HCPCS: 80048 ==

== ENCOUNTER → 2020-11-27 08:44 | Outpatient (BNVA) | payer OTHER, MEDICARE, SELFPAY | PROVIDERS: PCP Emergency Medicine Emergency Medical Services; Referring Provider Internal Medicine; Visit Provider Internal Medicine | DX: Z01.818 Encounter for other preprocedural examination (principal); I25.119 Atherosclerotic heart disease of native coronary artery with unspecified angina pectoris; I21.21 ST elevation (STEMI) myocardial infarction involving left circumflex coronary artery; Z20.822 Contact with and (suspected) exposure to COVID-19 | CPT/HCPCS: 80048; 85025; 85610; 87635 ==

== ENCOUNTER 2020-12-03 08:34 | Outpatient (CLI) | payer OTHER, MEDICARE, SELFPAY ==
[2020-12-03] VITALS (27 sets, daily range): BP systolic 112–193; BP diastolic 72–98; PULSE 47–65; RESP 6–27; TEMP 36.5–36.6; O2SAT 95–98; BMI 32.2
--- NOTE | 2020-12-03 06:00 | XACV_ITS ---
Ht: 173 cm Wt: 96 kg BSA: 2.18 m2 Gender: Male : 1950 Any Known Allergies: No known allergies Exam Priority: Routine Procedure(s): Procedure Description: Diagnostic procedure Procedure Description: Coronary Angiography Procedure Description: Pressure Wire Diagnostic Cath Status: Elective Diagnostic Findings * Indication: Patient had recent STEMI where his left circumflex artery was treated with ANDRIY x1. He had residual moderate to severe mid LAD stenosis. On his initial angiogram performed at the time of STEMI, it looked more like a severe stenosis. However on diagnostic angiogram performed today lesion looked like moderate with 50 to 60% stenosis. We decided to perform FFR of mid LAD. For full diagnostic angiogram report, please refer to procedure performed on 10/18/2020. * Circumflex has patent stent in mid segment. * Right Coronary Artery not injected. * Mid Left Anterior Descending to Mid Left Anterior Descending: Moderate 60% stenosis, SAV: 3 flow. * Left Main has no disease. Interventional Findings * Procedure detail: We engaged left main artery with XB 3.5 guide catheter. IV heparin was administered to maintain an ACT above 250 seconds. After zeroing and equalizing FFR pressure wire, we crossed mid LAD stenosis and parked the wire in distal LAD. IV adenosine was administered to induce hyperemia. Patient had a nonischemic FFR value of 0.83. At this time pressure wire was removed. Final angiogram was performed that showed no complications. Guide catheter was removed. TR band was applied to achieve hemostasis.. Conclusions 1. There is moderate mid LAD stenosis.FFR was non-ischemic with a value of 0.83. 2. Patent left circumflex stent. Recommendations * Continue current medications including aspirin and plavix. * High intensity statin therapy. * Outpatient cardiology follow up in 4 weeks. Interventional RX Recommendation: medical therapy and/or counseling Anticoagulation: Heparin Pressures Phase:Rest AO : 102 / 63 ( 82 ) @ 6:47:00 AM Clinical Evaluation EBL: 5mL-10mL Procedural Details Procedure Consent Obtained. Pre-Procedure Time Out. Identified patient by full name and date of as verbalized by the patient/guarantor. Does the consent match the physician's order: Yes. Accurate & Complete Informed Consent: Yes. Inpatient/Outpatient History & Physical on Chart: Yes. If H&P is completed, is and addenduem needed: No; If yes, is the addendum complete: N/A. Visualize and Verify Site with Patient/Guarantor: N/A. Relevant Radiology Images available: N/A. Pre-op teaching completed and patient verbalized understanding. The risks, benefits, and alternatives of sedation and/or procedure were discussed by physician. The patient agrees to continue. Equipment: 6F - Radial. Cardiac Cath Pack. Oculus360 Manifold Kit Model BT 2000. Heparinized Saline (2 units/mL), 1000 mL bag. Inventory is CRD 6 FR XB 3.5 GUIDE. Procedure started. Physician arrived. Physician scrubbed in. Immediate Pre-Procedure Time Out. Correct Patient: Yes; Correct Procedure: Yes; Correct Site: Yes; Correct Patient Position: Yes; Correct Supplies: Yes; Dried Flammable Prep: Yes; Blood Products Available: N/A;. Lidocaine 1% infiltrated to the right radial. Arterial access obtained. 6 emirati XB 3.5 guide catheter was inserted over the wire. FFR guidewire was advanced through the guide catheter to lesion in the mid LAD. An FFR value of 0.83 was obtained for a lesion located at Mid LAD. Fractional flow reserve measurements obtained. Wire out. Physician scrubbed out. A TR Band was successful obtaining hemostatsis at the Right Radial artery insertion site. TR band placed. Hemostasis obtained. Post Procedure: Pulses reassessed and unchanged. PERRLA. Strong, equal hand town clerk bilaterally. No VTE prophylaxis required. Medication's Wasted: Lidocaine 1% = 18 mL. Medication's Wasted: Nitro = 49.8 mg. Medication's Wasted: Heparin = 2000 units. Medication's Wasted: Other = fentanyl 50 mcg. Medication's Wasted: Other = versed 1 mg. Medication's Wasted: Other = adenosine 57 mg. Total IV fluids: 75 mL. Contrast type used: Visipaque 320 mgI/mL, 500 mL bottle. Post-op diagnosis: moderate Mid LAD stenosis. Complications: none. [facility] Clinical Fraility Score: 2: Well. Manager Erp Indications: Stable Known CAD. Chest Pain Symptom Assessment: Non-anginal Chest Pain. Cardiovascular Instability: No. Correct patient, site and procedure confirmed by cath team. PERRLA. Strong, equal hand town clerk bilaterally. Lungs clear x 5 lobes. IV Site on Arrival: 20 gauge in the left anticubital. Oxygen started at 2liters/min via nasal canula. right groin was prepped with chloroprep then draped in the usual sterile fashion. Estimated blood loss: 5mL-10mL. Procedure completed. Patient transferred by wheelchair to 1st floor. Vital chart was stopped. Access Site Site: Right Radial artery Sheath Size: 6 Fr Hemostasis Method: TR Band Hemostasis Success: Successful Procedure Medications Start: 7:34 AM Stop: 7:34 AM Medication: Versed Amount: 1 mg Route: I.V. Start: 7:35 AM Stop: 7:35 AM Medication: Fentanyl Amount: 25 mcg Route: I.V. Start: 7:41 AM Stop: 7:41 AM Medication: Versed Amount: 1 mg Route: I.V. Start: 7:44 AM Stop: 7:44 AM Medication: Nitrogylcerin Amount: 200 mcg Route: Topical Start: 7:46 AM Stop: 7:46 AM Medication: Heparin Amount: 9000 units Route: I.V. Start: 7:47 AM Stop: 7:47 AM Medication: Fentanyl Amount: 25 mcg Route: I.V. Start: 7:55 AM Stop: 7:55 AM Medication: Versed Amount: 1 mg Route: I.V. I, the attending physician, have reviewed and verified all procedure medications. Yes, all medications given per verbal order History/Risk Factors Hypertension: Yes Dyslipidemia: Yes Peripheral Arterial Disease (PAD): No Myocardial Infarction ([place]): Yes Obesity: No Renal Disease: No Tobacco Use: Former Prior Interventions PCI: Yes CABG: No Valve Surgery: No Date of PCI: 10/18/2020 Report Signatures Finalized by Triston Giron MD on 12/17/2020 01:56 PM
[2020-12-03] MEDS: diphenhydrAMINE 50 mg Capsule PO (06:29)
--- NOTE | 2020-12-03 07:29 | P.HP_ITS ---
Same Day Surgery H&P Indication for Procedure/HPI DATE OF PROCEDURE: December 03, 2020 CHIEF COMPLAINT/INDICATIONFOR SURGICAL PROCEDURE: Severe mid LAD stenosis PREOP DIAGNOSIS: Severe mid LAD stenosis PLANNED PROCEDRUE: Operation Date: 12/03/20 07:00 Proposed Procedures p Cardiac Catheterization 89032 I25.119(Left) - Triston Giron M.D Staged PCI of the LAD 70 year old male with past medical history of hypertension, hyperlipidemia and diabetes who had recent STEMI in his left circumflex artery was fixed with ANDRIY x1. He has residual stenosis in mid LAD. Plan for staged percutaneous coronary intervention today. ROS CONSTITUTIONAL: No fever chills weight loss or gain or night sweats. [] HEENT: Normocephalic, atraumatic.[] RESPIRATORY: No cough, sputum, hemoptysis or wheezing.[] CARDIOVASCULAR: No shortness of breath, chest pain, PND, orthopnea, lower extremity edema, presyncope or syncope. [] GI: no nausea vomiting diarrhea. [] CONTENT ARCHITECT: No numbness, tingling, weakness or loss of function in any part of the body. [] MUSCULOSKELETAL: No knee or joint pain or rashes. [] Medications/Allergies* Home Medications Medication Instructions Recorded Confirmed Type aspirin 81 mg tablet,delayed 81 mg PO DAILY 07/07/20 12/03/20 History release gabapentin 300 mg capsule 300 mg PO TID 07/07/20 12/03/20 History insulin aspart U-100 100 unit/mL 20 unit SUBCUT BID 07/07/20 12/03/20 History (3 mL) subcutaneous pen insulin glargine 100 unit/mL (3 40 unit SUBCUT DAILY 07/07/20 12/03/20 History mL) subcutaneous pen levothyroxine 125 mcg capsule 125 mcg PO DAILY 07/07/20 12/03/20 History melatonin 3 mg capsule 6 mg PO BEDTIME 07/07/20 12/03/20 History mirtazapine 15 mg tablet 15 mg PO BEDTIME 07/07/20 12/03/20 History omeprazole 20 mg tablet,delayed 20 mg PO DAILY 07/07/20 12/03/20 History release topiramate 50 mg tablet 50 mg PO BEDTIME 07/07/20 12/03/20 History Centrum Silver Men 1 tab PO DAILY 10/18/20 12/03/20 History cholecalciferol (vitamin D3) 50 mcg PO DAILY 10/18/20 12/03/20 History [Vitamin D3] Allergies/Adverse Reactions Allergy/AdvReac Type Severity Reaction Status Date / Time No Known Allergies Allergy Verified 10/28/20 10:53 Pertinent History/Comorbid Conditions* Medical History (Updated 10/28/20 @ 11:16 by ROSY Becerra) Atherosclerosis of coronary artery Diabetes Diverticul disease small and large intestine, no perforati or abscess Hernia Hyperlipidemia Hypertension Squamous cell cancer of scalp and skin of neck Surgical History (Updated 10/18/20 @ 20:14 by Triston Giron M.D) History of bowel resection Family History (Updated 07/07/20 @ 11:10 by Ileana Hannah LPN) Father Psychiatric illness Father Suicide Father Cancer Mother Hypertension Mother Social History Smoking and tobacco status: former smoker Alcohol intake: current Desire information about alcohol rehabilitation?: No Counseling given: No Pertinent Exam Findings alert, oriented x 3, clear to auscultation bilaterally and regular rate & rhythm Conscious Sedation Assessment PATIENT ASSESSED PRIOR TO SEDATION, WITH NO CHANGE NOTED: Yes AIRWAY EVAL/ANESTHESIA PLAN: normal airway, see other exam findings, ASA III, Monitored Anesthesia, Local Anesthesia, Risks, benefits & alternatives of sedation and/or procedure discussed and Patient agrees to continue as planned Recommendations Surgery/Procedure today Other Plans: Left heart cath + staged percutaneous coronary intervention Coding Level of Care Code Acute Finance Executive for Meliton Farr
[2020-12-03] MEDS: aspirin 81 mg EC Tablet PO (10:05)
[2020-12-03] MEDS: gabapentin 300 mg Capsule PO (10:06)
[2020-12-03] MEDS: clopidogrel 75 mg Tablet PO (10:06)
[2020-12-03] MEDS: levothyroxine 125 mcg Tablet PO (10:06)
[2020-12-03] MEDS: cholecalciferol (vitamin D3) 1,000 unit Tablet 2000 UNIT PO (10:06)
[2020-12-03] MEDS: lisinopril 10 mg Tablet PO (10:06)
[2020-12-03] MEDS: insulin glargine 100 units/1 mL 40 UNIT SUBCUT (10:07)
[2020-12-03 10:13] LABS: Glucose Point of Care 152 mg/dL (70-110)
--- NOTE | 2020-12-03 11:09 | PC.NURSE ---
received from cardiac rn cardiac cath at 0840 via w/c.report received.pt is alert and awake.denies pain.sr on monitor.right wrist with tr band on and inflated.right hand is warm to touch.no hematoma noted.palpable radial pulse noted distal to tr band.instructed in activity restrictions s/p radial artery procedure...and instructed to notify staff for any bleeding,pain,numbness..or for any concerns at all.pt verb understanding of instructions.
--- NOTE | 2020-12-03 15:24 | PC.NURSE ---
right wrist tr band was slowly deflated and eventually removed at 1245.no hematoma noted.right hand remains warm to touch and with brisk capillary refill.palpable radial pulse noted.dressed with 2x2 and secured with tape.instructe in activity restrictions s/p tr band removal.pt verb understanding of instructions.nehon [employer] monitor bp readings began to not correlate with manual reading (n.k. readings too high compared to cuff readings) dr ramirez aware.discharged ambulatory at 1515.discharge instructions given and explained.pt verb understanding of instructions.pt's son to drive pt home.
== END 2020-12-03 15:15 | disposition home or self-care (01) ==
LOC: CSU 08:40 → OPCSU 12-04 09:48 → CSU 12-04 09:49
PROVIDERS: PCP Emergency Medicine Emergency Medical Services; Visit Provider Internal Medicine
DX: I25.119 Atherosclerotic heart disease of native coronary artery with unspecified angina pectoris (principal); Z79.82 Long term (current) use of aspirin; E11.9 Type 2 diabetes mellitus without complications; E78.5 Hyperlipidemia, unspecified; I10 Essential (primary) hypertension
CPT/HCPCS: 36415; 36416; 82962; 93454; 96372; C1769; C1887; C1894; G0378; J0153; J1644; J1815; J2250; J3010; J3490; J7030; Q0163; Q9967

== ENCOUNTER → 2020-12-11 10:08 | Outpatient (BNVA) | payer OTHER, MEDICARE, SELFPAY | PROVIDERS: PCP Emergency Medicine Emergency Medical Services; Visit Provider Nurse Practitioner Family | DX: I25.119 Atherosclerotic heart disease of native coronary artery with unspecified angina pectoris (principal) | CPT/HCPCS: 80048 ==

== ENCOUNTER 2020-12-30 14:49 | Outpatient (RCR) | payer OTHER, MEDICARE, SELFPAY | END 2021-01-27 23:59 | disposition home or self-care (01) | LOC: CR 14:49 | PROVIDERS: PCP Emergency Medicine Emergency Medical Services; Referring Provider Internal Medicine; Visit Provider Internal Medicine | DX: I25.119 Atherosclerotic heart disease of native coronary artery with unspecified angina pectoris (principal); I21.21 ST elevation (STEMI) myocardial infarction involving left circumflex coronary artery | CPT/HCPCS: 93798 ==

== ENCOUNTER → 2021-01-21 09:28 | Outpatient (BNVA) | payer OTHER, SELFPAY | PROVIDERS: PCP Emergency Medicine Emergency Medical Services; Referring Provider Emergency Medicine Emergency Medical Services; Visit Provider Specialist | DX: E11.42 Type 2 diabetes mellitus with diabetic polyneuropathy (principal); Z79.4 Long term (current) use of insulin; R20.0 Anesthesia of skin; R20.2 Paresthesia of skin; Z87.891 Personal history of nicotine dependence | CPT/HCPCS: 99204 ==

== ENCOUNTER → 2021-02-17 09:56 | Outpatient (BNVA) | payer OTHER, SELFPAY | PROVIDERS: PCP Emergency Medicine Emergency Medical Services; Visit Provider Specialist | DX: R20.0 Anesthesia of skin (principal); R20.2 Paresthesia of skin; G62.89 Other specified polyneuropathies; G56.21 Lesion of ulnar nerve, right upper limb; Z87.891 Personal history of nicotine dependence | CPT/HCPCS: 95913 ==

== ENCOUNTER 2021-02-27 08:53 | Outpatient (RCR) | payer OTHER, SELFPAY | END 2021-03-29 23:59 | disposition home or self-care (01) | LOC: CR 08:53 | PROVIDERS: PCP Emergency Medicine Emergency Medical Services; Referring Provider Internal Medicine; Visit Provider Internal Medicine | DX: I21.21 ST elevation (STEMI) myocardial infarction involving left circumflex coronary artery (principal); I25.119 Atherosclerotic heart disease of native coronary artery with unspecified angina pectoris | CPT/HCPCS: 93798 ==

== ENCOUNTER → 2021-04-28 09:38 | Outpatient (BNVA) | payer OTHER, SELFPAY | PROVIDERS: PCP Emergency Medicine Emergency Medical Services; Visit Provider Specialist | DX: G62.9 Polyneuropathy, unspecified (principal); G56.21 Lesion of ulnar nerve, right upper limb | CPT/HCPCS: 99214 ==

== ENCOUNTER 2021-07-16 07:28 | Outpatient (CLI) | payer OTHER, SELFPAY ==
[2021-07-16 07:33] VITALS: BMI 30.9
--- NOTE | 2021-07-16 07:43 | NMCV_ITS ---
NM cassidy perf SPECT r/s* [id number] Bhavik Gaffney Age: 70 Gender: M : 1950 Exam Date: 07/16/2021 08:41 Ordering Phys: Triston Giron M.D ([email or web address]) Technologist: RONNIE Brand Exam Location: [facility] Indications: CHEST PAIN STRESS TEST Please [facility] IMAGE PROTOCOL Rest/Stress 1 Lexiscan Day Radiopharmaceutical Dose (mCi) Administration Site Administered by Rest: Tc-99m 10.9 IV RONNIE Hines Sestamibi Stress:Tc-99m 32.9 IV RONNIE Hines Sestamibi Rest: 16-Jul-2021 60 Discovery 630 Stress: 16-Jul-2021 30 Discovery 630 0.4mg Lexiscan. Images obtained in supine and prone position. SPECT RESULTS Technical Quality: Excellent Raw Data Analysis: Normal Image Corrections: No attenuation or motion correction applied Summed Stress Score: 4 Summed Rest Score: 2 Summed Difference Score: 3 PERFUSION FINDINGS There is small to moderate sized mostly reversible perfusion defect in the apical lateral and mid inferolateral lim. This is consistent with prior infarct with significant nazanin-infarct ischemia in the left circumflex artery territory. FUNCTIONAL RESULTS (calculated via Gated SPECT) Stress Image LV EF (%): 70 Stress EDV (mL):91 TID: 0.83 Stress ESV (mL):27 FUNCTIONAL FINDINGS: There is normal left ventricular systolic function. IMPRESSIONS 1. Abnormal myocardial perfusion imaging with prior infarct with significant nazanin-infarct ischemia noted in the left circumflex artery territory. 2. LV systolic function is normal Triston Giron MD (Electronically Signed) Final Date: 19 July 2021 12:42 S
[2021-07-16] MEDS: regadenoson 0.4 Mg/5 ml Syringe IVP (09:13)
[2021-07-16 09:25] VITALS: BP 137/68; PULSE 63
== END 2021-07-16 07:29 | disposition home or self-care (01) ==
LOC: RAD 07:30 → CDL 07:44
PROVIDERS: PCP Emergency Medicine Emergency Medical Services; Visit Provider Internal Medicine
DX: R07.9 Chest pain, unspecified (principal)
CPT/HCPCS: 78452; 93017; A9500; J2785

== ENCOUNTER → 2021-09-10 15:48 | Outpatient (BNVA) | payer OTHER, SELFPAY | PROVIDERS: PCP Family Medicine; Visit Provider Internal Medicine | DX: I25.119 Atherosclerotic heart disease of native coronary artery with unspecified angina pectoris (principal); E11.9 Type 2 diabetes mellitus without complications; E78.5 Hyperlipidemia, unspecified; I10 Essential (primary) hypertension; Z79.82 Long term (current) use of aspirin; Z79.4 Long term (current) use of insulin; Z87.891 Personal history of nicotine dependence | CPT/HCPCS: 99214 ==

== ENCOUNTER → 2021-10-14 13:41 | Outpatient (BNVA) | payer OTHER, SELFPAY | PROVIDERS: PCP Family Medicine; Visit Provider Social Worker | DX: F43.12 Post-traumatic stress disorder, chronic (principal) | CPT/HCPCS: 90837; 90834 ==

== ENCOUNTER → 2021-10-27 13:45 | Outpatient (BNVA) | payer OTHER, SELFPAY | PROVIDERS: PCP Family Medicine; Visit Provider Social Worker | DX: F43.12 Post-traumatic stress disorder, chronic (principal) | CPT/HCPCS: 90834 ==

== ENCOUNTER → 2022-03-11 15:30 | Outpatient (BNVA) | payer OTHER, SELFPAY | PROVIDERS: PCP Family Medicine; Visit Provider Internal Medicine | DX: I25.119 Atherosclerotic heart disease of native coronary artery with unspecified angina pectoris (principal); E11.9 Type 2 diabetes mellitus without complications; Z79.4 Long term (current) use of insulin; E78.5 Hyperlipidemia, unspecified; I10 Essential (primary) hypertension; Z87.891 Personal history of nicotine dependence | CPT/HCPCS: 99214 ==

== ENCOUNTER → 2022-04-28 08:46 | Outpatient (BNVA) | payer OTHER, SELFPAY | PROVIDERS: PCP Family Medicine; Visit Provider Specialist | DX: G31.84 Mild cognitive impairment of uncertain or unknown etiology (principal); G56.21 Lesion of ulnar nerve, right upper limb; G25.0 Essential tremor; T60.3X Toxic effect of herbicides and fungicides; E09.40 Drug or chemical induced diabetes mellitus with neurological complications with diabetic neuropathy, unspecified; Z79.4 Long term (current) use of insulin | CPT/HCPCS: 96116; 99215 ==

== ENCOUNTER 2022-07-29 10:24 | Observation (INO) | payer OTHER, SELFPAY ==
[2022-07-29] VITALS (9 sets, daily range): BP systolic 134–182; BP diastolic 60–81; PULSE 45–55; RESP 14–19; TEMP 36.3–36.8; O2SAT 96–100; BMI 31.3; BMI 29.7
--- NOTE | 2022-07-29 10:34 | XRR_ITS ---
PROCEDURE INFORMATION: Exam: XR Chest Exam date and time: 07/29/2022 10:43 AM Age: 71 years old Clinical indication: Angina pectoris; Prior surgery; Surgery type: Cardiac stents; Patient HX: Left arm pain; Additional info: Chest pain TECHNIQUE: Imaging protocol: Radiologic exam of the chest. Views: 1 view. COMPARISON: CR XR chest 1V portable [id number] 10/18/2020 7:33 PM FINDINGS: Lungs: Unremarkable. No consolidation. Pleural spaces: Unremarkable. No pleural effusion. No pneumothorax. Heart/Mediastinum: Unremarkable. No cardiomegaly. Bones/joints: Unremarkable. XR/XR chest 1V portable [id number] IMPRESSION: No acute findings.
--- NOTE | 2022-07-29 10:34 | ECG_ITS ---
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 Measurements Intervals [place] Rate: 50 P: 48 [place]: 191 QRS: 36 QRSD: 90 T: 39 QT: 395 QTc: 361 Interpretive Statements SINUS BRADYCARDIA Compared to ECG 10/18/2020 19:36:15 Sinus rhythm no longer present ST (T wave) deviation no longer present Myocardial infarct finding no longer present Electronically Signed On 07-29-2022 18:05:00 AUTOMOBILE DRIVERS by Triston Giron M.D. [id number]
--- NOTE | 2022-07-29 10:52 | W.ED.CHESTPA ---
HPI - Chest Pain General: Chief Complaint: Chest Pain Stated Complaint: substernal/ L arm pain Time Seen by Provider: 07/29/22 10:38 Source: patient Mode of arrival: ambulatory Limitations: no limitations History of Present Illness: This patient with a known history of coronary artery disease presented to the emergency department today because of being woken up this morning with left arm pain. He states the left arm pain is very similar to that which he experienced when he had an NM and stents placed approximately 2 years ago. He now states the pain has resolved. Is been present prior to arrival and for approximately 3 hours. He denies any injury, sleeping on his arm or side difficulty with movement of the arm. He denies shortness of breath, actual chest pain, recent illness cough cold fevers etc. He has been faithful to all his medications and is a nontobacco user. He is taking all his medications today. Pertinent past history: coronary artery disease Prior episodes: Yes Onset: during rest Associated symptoms: Deny abdominal pain, dyspnea, fever(s), nausea, palpitations, syncope or vomiting Risk Factors: Coronary artery disease risk factors: diabetes Review of Systems Const: Denies: fever(s) or chills Eyes: Denies: change in vision ENMT: Denies: throat pain, odynophagia or nasal discharge Card: Denies: chest pain, palpitations, irregular heart rhythm, syncope or pre-syncope Resp: Denies: dyspnea, productive cough or non-productive cough GI: Denies: abdominal pain, nausea, vomiting or diarrhea : Denies: flank pain, difficulty urinating, dysuria or urinary frequency Musc: Reports: extremity pain; Denies: extremity swelling Skin/Breast: Denies: rash Neuro: Denies: headache(s), numbness in extremities or weakness in extremities Psych: Reports: anxiety (PTSD) PFSH ED PFSH: Medical History Atherosclerosis of coronary artery Diabetes Diverticul disease small and large intestine, no perforati or abscess Hernia Hyperlipidemia Hypertension Psychiatric care Squamous cell cancer of scalp and skin of neck Surgical History History of bowel resection Family History Father Suicide Psychiatric illness Mother Cancer Hypertension Social History Smoking and tobacco status: former smoker Alcohol intake: current Desire information about alcohol rehabilitation?: No Counseling given: No Physical Exam Narrative: EXAM NARRATIVE: , Normal body habitus, alert and comfortable. No acute distress answers questions in a goal-directed fashion. Const: COMMON NORMALS: no acute distress, average body habitus and patient oriented x3 GENERAL APPEARANCE: cooperative and comfortable HENMT: COMMON NORMALS: normocephalic, Normal nasal mucous membranes and turbinates present, moist oral mucous membranes and oropharynx normal HEAD & SCALP: normocephalic NOSE: Normal nasal mucous membranes and turbinates present Eye: COMMON NORMALS: Equal, round and reactive pupils present, EOMs intact bilaterally and conjunctivae normal CONJUNCTIVA: Yes conjunctivae normal PUPIL: Yes Equal, round and reactive pupils present Neck/C-Spine: COMMON NORMALS: full ROM, no lymphadenopathy, supple, no JVD and No carotid bruits CERVICAL SPINE: No Cervical spine tenderness, No Paracervical muscle tenderness and No Trapezius muscle tenderness Chest: COMMONS NORMALS: normal inspection of the chest and normal palpation of entire chest wall Resp: COMMON NORMALS: normal respiratory effort, No use of accessory muscles and clear to auscultation bilaterally AUSCULTATION: clear to auscultation bilaterally Cardio: COMMON NORMALS: no JVD, regular rate, regular rhythm, No murmurs present (Cardio) and Peripheral pulses 2+ throughout RATE: regular rate RHYTHM: regular rhythm PERIPHERAL PULSES: Peripheral pulses 2+ throughout GI: COMMON NORMALS: Normal to inspection, nondistended, normoactive bowel sounds present and Soft to palpation INSPECTION: Yes scar (Ventral healed surgical scar with ventral hernia.) PALPATION: Yes Soft to palpation : COMMON NORMALS: Yes no CVA tenderness BLADDER/KIDNEY EXAM: Yes no CVA tenderness Back/Pelvis: COMMON NORMALS: no CVA tenderness, thoracic and lumbar spine normal to inspection, no thoracic nor lumbar tenderness and thoraco-lumbar ROM normal Extremity: COMMON NORMALS: normal to inspection, full ROM, capillary refill normal, no calf tenderness and no pedal edema Neuro: COMMON NORMALS: patient oriented x3, moves all extremities and no sensory deficits noted Psych: COMMON NORMALS: mental status grossly normal Skin: COMMON NORMALS: no rashes or lesions noted, no wounds and turgor normal GENERAL SKIN EXAM: no rashes or lesions noted and turgor normal Course Reevaluation(s): Reevaluation #1: Patient's second troponin is essentially unchanged but still elevated over the URL. He is displaying episodes of sinus bradycardia at times which EKG computer interprets as possible second-degree type II AV block however my review of the EKG is not consistent with that finding. I think given his history and his slight elevation in troponin I think is reasonable for us to put him in observation status to continue following EKGs serial troponins and to further evaluate his bradycardia. He is currently on metoprolol which may be a contributing factor. Repeat evaluation remains pain-free. No new or focal findings on repeat examination. Time: 13:32 Consultations: Consultation #1: Discussed with Dr. Dewitt hospitalist who agreed to place him in observation for continued troponin trending, serial EKGs and provocative testing as indicated. Time: 14:42 Vital Signs: Vital signs: Vital Signs Temperature 97.3 F L 07/29/22 10:27 Pulse Rate 51 L 07/29/22 10:27 Respiratory Rate 19 H 07/29/22 10:27 Blood Pressure 182/76 07/29/22 10:27 Pulse Oximetry 100 07/29/22 10:27 Oxygen Delivery Me thod 07/29/22 10:27 MDM - Chest Pain Medical Decision Making Woman who has known history of coronary artery disease and prior stents placement after NM came to the emergency department because of left arm pain which she stated awoke him from sleep and was very similar to that which he experienced in the past when he had his NM. He denies any fevers chills cough or other potential chest pain symptoms or etiologies. His initial EKG was reassuring serial EKGs also remained and reassuring other than he has episodes of sinus bradycardia. His initial troponin was slightly elevated and a repeat troponin was also elevated but not a significant delta. Chest x-ray was reassuring. Ongoing ACS is less likely however because of his history and current symptoms on it is reasonable for us to trend his troponin and EKGs and at that point determine if he needs additional evaluation from cardiology etc. His sinus bradycardia is not high-grade second-degree or third-degree block as implicated by computer-generated reading of his EKG but does likely represent bradycardia from his metoprolol. Medical Records I reviewed the patient's medical records. Reviewed prior ambulatory monitor which did not reveal any concerns other than just episodes of sinus bradycardia. Lab Data I reviewed the patient's lab results. 07/29/22 10:50 07/29/22 10:50 Radiology Impressions Chest X-Ray 07/29/22 10:34 IMPRESSION: No acute findings. Laboratory Results WBC 3.5 10^3/uL (4.0-10.0) L 07/29/22 10:50 RBC 4.77 10^6/uL (4.1-5.3) 07/29/22 10:50 Hgb 15.0 g/dL (11.7-16.6) 07/29/22 10:50 Hct 42.6 % (42.0-52.0) 07/29/22 10:50 MCV 89.3 fl (80-94) 07/29/22 10:50 MCH 31.4 pg (28.0-34.0) 07/29/22 10:50 MCHC 35.2 g/dL (30.0-36.0) 07/29/22 10:50 RDW 13.2 % (12.1-15.1) 07/29/22 10:50 Plt Count 161 10^3/cmm (130-400) 07/29/22 10:50 MPV 9.2 fL (7.4-10.4) 07/29/22 10:50 Neut % (Auto) 58.4 % 07/29/22 10:50 Lymph % (Auto) 24.5 % 07/29/22 10:50 Refugio % (Auto) 11.1 % 07/29/22 10:50 Eos % (Auto) 4.3 % 07/29/22 10:50 Baso % (Auto) 1.1 % 07/29/22 10:50 Neut # (Auto) 2.05 10^3/uL (1.8-7.7) 07/29/22 10:50 Lymph # (Auto) 0.9 10^3/uL (0.8-4.8) 07/29/22 10:50 [place] # (Auto) 0.4 10^3/uL (0.2-0.9) 07/29/22 10:50 Eos # (Auto) 0.2 10^3/uL (0.0-0.8) 07/29/22 10:50 Baso # (Auto) 0.0 10^3/uL (0.0-0.1) 07/29/22 10:50 Nucleated RBC % (auto) 0 % 07/29/22 10:50 Nucleated RBCs # 0.0 /100WBC 07/29/22 10:50 Sodium 130 mmol/L (136-145) L 07/29/22 10:50 Potassium 4.3 mmol/L (3.5-5.1) 07/29/22 10:50 Chloride 92 mmol/L (98-107) L 07/29/22 10:50 Carbon Dioxide 24 mmol/L (22-29) 07/29/22 10:50 Anion Gap 18.3 (5-19) 07/29/22 10:50 BUN 26 mg/dL (8-23) H 07/29/22 10:50 Creatinine 1.2 mg/dL (0.7-1.2) 07/29/22 10:50 GFR Calculation Not Reportable 07/29/22 10:50 Glucose 80 mg/dL (65-115) 07/29/22 10:50 Calculated Osmolality 274 mOsm/kg (285-295) L 07/29/22 10:50 Calcium 10.4 mg/dL (8.5-10.5) 07/29/22 10:50 Total Bilirubin 0.5 mg/dL (0.15-1.2) 07/29/22 10:50 AST 26 U/L (0-40) 07/29/22 10:50 ALT 26 U/L (0-41) 07/29/22 10:50 Alkaline Phosphatase 98 U/L (40-130) 07/29/22 10:50 Troponin T Baseline 30 ng/L (0-15) H 07/29/22 10:50 Troponin T 120 Minute 31.54 ng/L (0-15) H 07/29/22 12:44 Delta Troponin T 1.54 ABS# (0-10) 07/29/22 12:44 Total Protein 7.8 g/dL (6.6-8.7) 07/29/22 10:50 Albumin 4.5 g/dL (3.5-5.2) 07/29/22 10:50 Globulin 3.3 g/dL (1.3-4.6) 07/29/22 10:50 EKG Data EKG 1: I personally reviewed and interpreted this EKG as follows: Interpretation: Contemporaneous review of resting EKG reveals ventricular rate of 50 bpm. AK interval, QRS duration, corrected QT interval and axes are all normal.'s consistent with sinus bradycardia without any acute ST-T wave changes noted. Discharge Plan Discharge Patient Disposition: Placed in Observation Clinical Impression: Chest pain, Bradycardia, sinus Coding Level of Care Code ED Public Relations Officer for Meliton Farr
[2022-07-29 11:00] LABS: Basophils % 1.1 %; Eosinophils # 0.2 10^3/uL (0.0-0.8); Eosinophils % 4.3 %; Hematocrit 42.6 % (42.0-52.0); Lymphocytes # 0.9 10^3/uL (0.8-4.8); Lymphocytes % 24.5 %; Mean Corpuscular HGB Conc 35.2 g/dL (30.0-36.0); Mean Corpuscular Hemoglobin 31.4 pg (28.0-34.0); Mean Corpuscular Volume 89.3 fl (80-94); Mean Platelet Volume 9.2 fL (7.4-10.4); Monocytes # 0.4 10^3/uL (0.2-0.9); Monocytes % 11.1 %; Neutrophils # 2.05 10^3/uL (1.8-7.7); Neutrophils % 58.4 %; Nucleated Red Blood Cells % 0 %; Platelet Count 161 10^3/cmm (130-400); Red Blood Count 4.77 10^6/uL (4.1-5.3); Red Cell Distribution Width 13.2 % (12.1-15.1); White Blood Count 3.5 10^3/uL (4.0-10.0)
[2022-07-29 11:29] LABS: Troponin(5th) Baseline 30 ng/L (0-15)
[2022-07-29 11:30] LABS: Alanine Aminotransferase 26 U/L (0-41); Albumin Level 4.5 g/dL (3.5-5.2); Alkaline Phosphatase 98 U/L (40-130); Anion Gap 18.3 (5-19); Aspartate Amino Transferase 26 U/L (0-40); Blood Urea Nitrogen 26 mg/dL (8-23); Calcium 10.4 mg/dL (8.5-10.5); Carbon Dioxide 24 mmol/L (22-29); Chloride 92 mmol/L (98-107); Globulin 3.3 g/dL (1.3-4.6); Glucose 80 mg/dL (65-115); Osmolality Calculated 274 mOsm/kg (285-295); Potassium 4.3 mmol/L (3.5-5.1); Sodium 130 mmol/L (136-145); Total Bilirubin 0.5 mg/dL (0.15-1.2); Total Protein 7.8 g/dL (6.6-8.7)
--- NOTE | 2022-07-29 12:26 | PC.PHAR ---
waiting for [facility] to fax med list
--- NOTE | 2022-07-29 12:39 | ECG_ITS ---
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 Measurements Intervals [place] Rate: 38 P: 0 [place]: 0 QRS: 34 QRSD: 92 T: 22 QT: 420 QTc: 336 Interpretive Statements Sinus bradycardia Electronically Signed On 07-29-2022 18:12:12 SET KEY DRIVER by Tirston Giron M.D. [id number]
[2022-07-29 13:17] LABS: Troponin 5 2HR 31.54 ng/L (0-15)
[2022-07-29 13:18] LABS: Troponin 5 2HR Delta 1.54 ABS# (0-10)
--- NOTE | 2022-07-29 14:02 | PC.NURSE ---
IN ROOM WITH PATIENT - HE IS AWARE WE ARE ADMITTING HIM.
--- NOTE | 2022-07-29 14:45 | P.HP_ITS ---
Providers/Chief Complaint Primary Care Provider: Brittanie Mcguire MD Chief Complaint: substernal/ L arm pain History of Present Illness Bhavik Gaffney is a 71 year old male with history of coronary disease, stent in circumflex, LAD showed atherosclerosis however not amenable to stent because of low FFR presented today with chief complaint of left arm numbness. Patient woke up with left arm numbness around 7:30 AM and it lasted for about 3-1/2 hours until he was able to call 911, it resolved spontaneously without taking any aspirin or nitroglycerin. He did not experience any chest pain, vomiting, diaphoresis. He felt nauseous to some extent. Patient is stating his heart rate always runs low and he kept taking metoprolol because it was never an issue for him he follows up with Dr. Preciado. In the ER hospitalist requested to admit because of established history of cardiac disease. She is chest pain-free not complaining of left arm numbness. Hemodynamically stable heart rate 55 Review of Systems Const: Denies: fever(s) Eyes: Denies: change in vision ENMT: Denies: throat pain Card: Denies: chest pain Resp: Denies: dyspnea GI: Reports: nausea; Denies: abdominal pain : Denies: flank pain Musc: Denies: neck pain Skin/Breast: Denies: rash Neuro: Denies: headache(s) Psych: Reports: anxiety Endo: Denies: polyuria Dominguez/Lymph: Denies: easy bruising All/Imm: Denies: urticaria Medications/Allergies Home Medications Medication Instructions Recorded Confirmed Last Taken Type aspirin 81 mg tablet,delayed 81 mg PO QAM 07/07/20 07/29/22 07/29/22 History release insulin aspart U-100 100 unit/mL 12 unit SUBCUT QAM 07/07/20 07/29/22 07/29/22 History (3 mL) subcutaneous pen (Novolog see pharmacy FlexPen U-100 Insulin aspart) comment insulin glargine 100 unit/mL (3 31 unit SUBCUT BEDTIME 07/07/20 07/29/22 07/28/22 History mL) subcutaneous pen (Lantus see pharmacy Solostar U-100 Insulin) comment melatonin 3 mg capsule 6 mg PO BEDTIME 07/07/20 07/29/22 07/28/22 History omeprazole 20 mg tablet,delayed 20 mg PO QPM 07/07/20 07/29/22 07/28/22 History release gabapentin 300 mg capsule 600 mg PO TID@09,15,09/10/21 07/29/22 07/29/22 07:3 0 History hydrochlorothiazide 25 mg tablet 25 mg PO QAM 09/10/21 07/29/22 07/29/22 History amlodipine 5 mg tablet 5 mg PO QAM 03/11/22 07/29/22 07/29/22 History calcium polycarbophil 625 mg tablet 1,250 mg PO BID 03/11/22 07/29/22 07/29/22 History cholecalciferol (vitamin D3) 50 4,000 unit PO QAM 03/11/22 07/29/22 07/29/22 History mcg (2,000 unit) tablet (Vitamin D3) galantamine 4 mg tablet 4 mg PO BID 90 days #180 tabs 04/28/22 07/29/22 07/29/22 Rx primidone 50 mg tablet 50 mg PO BID 90 days #180 tabs 04/28/22 07/29/22 07/29/22 Rx atorvastatin 80 mg tablet 40 mg PO BEDTIME 07/29/22 07/29/22 07/28/22 History clopidogrel 75 mg tablet 75 mg PO QAM 07/29/22 07/29/22 07/29/22 History folic acid 1 mg tablet 1 mg PO DAILY 07/29/22 07/29/22 Unknown History levothyroxine 125 mcg tablet 125 mcg PO QAM 07/29/22 07/29/22 07/29/22 History lisinopril 40 mg tablet 40 mg PO QAM 07/29/22 07/29/22 07/29/22 History metoprolol succinate 50 mg 50 mg PO QAM 07/29/22 07/29/22 07/29/22 History tablet,extended release 24 hr mirtazapine 30 mg tablet 15 mg PO BEDTIME 07/29/22 07/29/22 07/28/22 History nitroglycerin 0.4 mg sublingual 0.4 mg sublingual Q5M PRN Chest 07/29/22 07/29/22 Unknown History tablet (Nitrostat) Pain omega-3 fatty acids 1,000 mg 1,000 mg PO BID 07/29/22 07/29/22 07/29/22 History capsule Allergies Allergy/AdvReac Type Severity Reaction Status Date / Time No Known Allergies Allergy Verified 07/29/22 14:17 PFSH Acute PFSH: Medical History Atherosclerosis of coronary artery Diabetes Diverticul disease small and large intestine, no perforati or abscess Hernia Hyperlipidemia Hypertension Psychiatric care Squamous cell cancer of scalp and skin of neck Surgical History History of bowel resection Family History Father Suicide Psychiatric illness Mother Cancer Hypertension Social History Smoking and tobacco status: former smoker Alcohol intake: current Desire information about alcohol rehabilitation?: No Counseling given: No Vitals/I&O/Wt Last Vital Signs Temp 97.3 F L 07/29/22 10:27 Pulse 51 L 07/29/22 10:27 Resp 19 H 07/29/22 10:27 BP 182/76 07/29/22 10:27 Pulse Ox 100 07/29/22 10:27 O2 Del Method 07/29/22 10:27 Weight last 48 hrs Weight 93.44 kg Physical Exam Narrative: Alert S1, S2 GCS 15 No active chest pain Left arm numbness improved Hemodynamically stable Heart rate 55 Pleasant and cooperative Emotional labile Appears stated age Euvolemic Nonfocal neuro exam No audible stridor or wheezing Data 07/29/22 10:50 07/29/22 10:50 A&P Assessment and plan (1) Chest pain: (2) Bradycardia, sinus: (3) Essential tremor: (4) Mild cognitive impairment with memory loss: (5) Sinus bradycardia: (6) Ulnar neuropathy at elbow of right upper extremity: (7) Peripheral neuropathy: (8) Diabetes: (9) Hypertension: Qualifiers: Hypertension type: essential hypertension Qualified Code(s): I10 - Essential (primary) hypertension Plan Angina equivalent History of stents placed 80 mid left circumflex artery he also had mid LAD 70 to 75% stenosis which was recommended to be intervened as a staged procedure, FFR was nonischemic with a value of 0.83 Troponins without significant delta EKG without ischemic or infarctive changes We will request echo Stress test in the morning Request D-dimer No active chest pain Patient is stating that he mostly sleeps on his left arm undergoing social stre ssors because his is in [place] and immigration process is very daunting on him Hypertension: Optimize antihypertensive regimen Bradycardia: Hold metoprolol, check TSH EKG showing sinus bradycardia, no signs of second-degree or third-degree block N.p.o. after midnight Consistent carb diet for now Moderate sliding scale for diabetes history Full code Insomnia Patient takes melatonin at night Essential tremors We can continue primidone for now He follows up with Dr. Giron outpatient Attestations Medical Necessity Statement*: Anticipating discharge within 48 hours Diagnoses Chest pain R07.9 Bradycardia, sinus R00.1 Essential tremor G25.0 Mild cognitive impairment with memory loss G31.84 Sinus bradycardia R00.1 Ulnar neuropathy at elbow of right upper extremity G56.21 Peripheral neuropathy G62.9 Diabetes E11.9 Hypertension I10 Hypertension type: essential hypertension
[2022-07-29 15:30] LABS: D Dimer 0.47 ug/mIFEU (0-0.59)
--- NOTE | 2022-07-29 15:46 | ECG_ITS ---
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 Interpretive Statements NAME OF STUDY: LEXISCAN SESTAMIBI STRESS TEST INDICATION: [UA, ] Procedure: At the baseline, the blood pressure was 143/67 mmHg with a heart rate of 57 bpm. The electrocardiogram showed sinus bradycardia, normal axis with normal ST and T's. The Lexiscan was infused over a period of 20 seconds. A total of 0.4 mg of Lexiscan was infused. The stress phase was continued for a total of 5 minutes. Heart rate was at the end of stress phase was 80 bpm and a blood pressure of 132/65 mmHg. The EKG at the peak infusion revealed normal sinus rhythm with no significant ST-T wave changes. Sestamibi was injected 20 seconds after the Lexiscan infusion. Blood pressure at the end of recovery phase was 123/59 mmHg with a heart rate of 71 bpm. Conclusion: 1. Normal EKG response to Lexiscan infusion 2. No Lexiscan induced chest pain or cardiac arrhythmia. 3. Normal blood pressure and heart rate response. 4. Sestamibi/sestamibi perfusion scan pending; see separate report. Electronically Signed On 07-31-2022 18:48:54 FLOW MACHINE OPERATOR by Triston Giron M.D. [id number]
--- NOTE | 2022-07-29 15:46 | USCV_ITS ---
Bhavik Gaffney Age: 71 Gender: M : 1950 Exam Date: 07/29/2022 16:53 Ordering Phys: Edmund Wilson MD Technologist: Piero Andres [place] [facility] [place]: ua hx of cad BP: 134 / 82 HR: 51 Rhythm: Sinus Technical Quality: Adequate MEASUREMENTS (Male / Female) Normal Values 2D ECHO LV Diastolic Diameter PLAX 4.3 cm 4.2 - 5.9 / 3.9 - 5.3 cm LV Systolic Diameter PLAX 2.8 cm IVS Diastolic Thickness 1.0 cm 0.6 - 1.0 / 0.6 - 0.9 cm IVS Systolic Thickness 1.8 cm LVPW Diastolic Thickness 1.2 cm 0.6 - 1.0 / 0.6 - 0.9 cm LVPW Systolic Thickness 1.5 cm LVOT Diameter 2.0 cm LV Ejection Fraction 2D Teich 66.5 % LA Diameter 4.4 cm IVC Diameter 1.4 cm M-MODE Aortic Annulus Diameter 3.9 cm LA Ao Ratio MM 1.2 MV E Point Septal Separation 1.4 cm DOPPLER AV Peak Velocity 139.0 cm/s LVOT Peak Velocity 79.0 cm/s AV Area Cont Eq vti 2.1 cm squared AV Area Cont Eq pk 1.9 cm squared MV Area PHT 5.0 cm squared Mitral E to A Ratio 1.1 MV E' Velocity 48.0 cm/s Mitral E to MV E' Ratio 9.5 Mitral E to LV E' Lateral Ratio 8.4 Mitral E to LV E' Septal Ratio 11.0 TR Peak Velocity 188.0 cm/s TR Peak Gradient 14.1 mmHg TV Peak E Velocity 84.0 cm/s Right Atrial Pressure 3.0 mmHg Pulmonary Artery Systolic Pressu 17.1 mmHg RV Acceleration Time 0.1 s FINDINGS Left Ventricle Normal left ventricular size and systolic function, EF 60%.mild left ventricular hypertrophy. No regional wall motion abnormalities. Possible grade 2 diastolic dysfunction Right Ventricle The right ventricle is normal in size and function. Right Atrium The right atrium is normal in size. Left Atrium Mildly increased left atrial size. Mitral Valve Mild mitral valve regurgitation. Aortic Valve Thickened aortic valve. Trace aortic valve regurgitation. Tricuspid Valve No gross abnormalities noted. PA pressure seems within normal limits. Because of the poor Doppler signals, this could be misleading Pulmonic Valve No gross abnormalities noted Pericardium No pericardial effusion. Aorta Normal ascending aorta dimension. IVC The inferior vena cava appears normal. CONCLUSIONS Normal left ventricular size and systolic function, EF 60%.mild left ventricular hypertrophy. No regional wall motion abnormalities. Possible grade 2 diastolic dysfunction. Mildly increased left atrial size. Thickened aortic valve. Trace aortic valve regurgitation. PA pressure seems within normal limits. Because of the poor Doppler signals, this could be misleading. There is no pericardial effusion. There are no intracardiac masses. Compared to the study from 10/19/2020, there may not be a significant change Dr Nuria Licona MD [facility] (Electronically Signed) Final Date: 30 July 2022 09:41 S
[2022-07-29 16:25] LABS: Thyroid Stimulating Hormone 0.68 uIU/mL (0.27-4.20)
--- NOTE | 2022-07-29 16:34 | ECG_ITS ---
[facility] Test Date: 2022-07-29 Pat Name: Bhavik Gaffney Department: Room: 255 Gender: Male Animal Attendant: : 1950 Requested By: Itzel Rivera Order Number: [id number] Shira MD: Triston Giron M.D. Measurements Intervals [place] Rate: 54 P: 54 RI: 168 QRS: 54 QRSD: 97 T: 44 QT: 408 QTc: 387 Interpretive Statements SINUS BRADYCARDIA Compared to ECG 07/29/2022 12:39:44 No significant changes Electronically Signed On 07-29-2022 18:09:25 MACHINERY RIGGER by Triston Giron M.D. [id number]
[2022-07-29] MEDS: enoxaparin 40 mg/0.4 mL Syringe SUBCUT (16:44)
[2022-07-29] MEDS: sodium chloride 0.9% 1,000 ML 75 ML IV (16:45)
[2022-07-29 16:59] LABS: Glucose Point of Care 133 mg/dL (70-110)
[2022-07-29 17:17] LABS: Troponin 5 6HR 36.28 ng/L (0-15); Troponin 5 6HR Delta 6.28 ng/L (0-12)
[2022-07-29] MEDS: atorvastatin 40 mg Tablet PO (21:00)
[2022-07-29] MEDS: insulin glargine 100 units/1 mL 31 UNIT SUBCUT (21:03)
[2022-07-29 22:19] LABS: Glucose Point of Care 197 mg/dL (70-110)
[2022-07-30] VITALS (11 sets, daily range): BP systolic 109–143; BP diastolic 59–74; PULSE 45–81; RESP 16–18; TEMP 36.5–36.9; O2SAT 95–99
[2022-07-30] MEDS: clopidogrel 75 mg Tablet PO (05:02)
[2022-07-30] MEDS: lisinopril 20 mg Tablet 40 MG PO (05:02)
[2022-07-30] MEDS: aspirin 81 mg EC Tablet PO (05:02)
[2022-07-30] MEDS: levothyroxine 125 mcg Tablet PO (05:02)
[2022-07-30] MEDS: amlodipine 5 mg Tablet PO (05:02)
[2022-07-30] MEDS: hydroCHLOROthiazide 25 mg Tablet PO (05:02)
[2022-07-30 05:26] LABS: Basophils % 0.4 %; Eosinophils # 0.2 10^3/uL (0.0-0.8); Eosinophils % 3.7 %; Hematocrit 39.4 % (42.0-52.0); Lymphocytes # 1.2 10^3/uL (0.8-4.8); Lymphocytes % 24.7 %; Mean Corpuscular HGB Conc 35.5 g/dL (30.0-36.0); Mean Corpuscular Volume 90.2 fl (80-94); Mean Platelet Volume 9.1 fL (7.4-10.4); Monocytes # 0.5 10^3/uL (0.2-0.9); Monocytes % 10.4 %; Neutrophils % 60.4 %; Nucleated Red Blood Cells % 0 %; Platelet Count 156 10^3/cmm (130-400); Red Blood Count 4.37 10^6/uL (4.1-5.3); Red Cell Distribution Width 13.3 % (12.1-15.1); White Blood Count 4.8 10^3/uL (4.0-10.0)
[2022-07-30 05:48] LABS: Blood Urea Nitrogen 18 mg/dL (8-23); Calcium 9.6 mg/dL (8.5-10.5); Carbon Dioxide 26 mmol/L (22-29); Chloride 98 mmol/L (98-107); Glucose 63 mg/dL (65-115); Magnesium 1.4 mg/dL (1.7-2.3); Osmolality Calculated 280 mOsm/kg (285-295); Sodium 135 mmol/L (136-145)
[2022-07-30 06:42] LABS: Glucose Point of Care 69 mg/dL (70-110)
[2022-07-30 07:17] LABS: Glucose Point of Care 78 mg/dL (70-110)
--- NOTE | 2022-07-30 07:46 | PC.NURSE ---
This nurse discussed the order for dextrose 50% IV that was ordered. Dayshift nurse and doctor have discussed what they want to administer and will adjust accordingly. This nurse left the medication with dayshift to administer.
[2022-07-30] MEDS: folic acid 1 mg Tablet PO (08:34)
[2022-07-30] MEDS: sennosides-docusate Tablet 1 TAB PO (08:34)
[2022-07-30] MEDS: pantoprazole DR 40 mg Tablet PO (08:34)
[2022-07-30] MEDS: dextrose 10% 250 ML IV (08:36)
--- NOTE | 2022-07-30 10:54 | PC.CHAP ---
Pastoral Care Encounter/Spiritual Assessment Type of Contact [] Declined clay house worker visit [] Patient/Family/Request visit [] Outpatient visit [] Follow-up visit [] Physician referral [] Code/Alert [x] Routine visit [] Staff referral [] Actively dying [] Patient sleeping [] Family support [] [] Out of room [] Palliative care [] [] Receiving care in room [] Pre-surgical visit [] Trauma [] Long length of stay [] ICU visit [] Other: Relational/Emotional Strength [x] Patient feels connected with others/family/visitors/staff [] Distress [] Loneliness/isolation [] Abandonment Spirituality of Patient [] Person of Jessica [] Attends Yazidism of their Jessica [] Believes in Prayer [] Reads Bible or Mandaeism materials [] There are Spiritual issues to be addressed Masseur/Masseuse Interventions [x] Prayer [] Active listening [] Non-anxious presence [] Spiritual/emotional support [] Crisis/trauma care [] Spiritual counseling [] Bereavement support [] Provided bereavement packet [] Provided Bible/devotional materials [] Provided toy/stuffed animal, coloring book to patient or family member [] Provided Communion [] Anointing/Theriot [] Salvation [] Completed spiritual assessment [] Other: Impact on Illness or Injury [] Angry [] Fearful [] Anxious [] Often cries [] Exhaustion [] Unable to work [] Unable to attend yarsanism [] Unable to walk/stand [] Unable to read [] Unable to drive [] Unable to eat/drink [] Unable to sleep [] Unable to be with family [] Patient intubated [] Other: Summary Time spent with patient 20min
[2022-07-30 11:37] LABS: Glucose Point of Care 102 mg/dL (70-110)
[2022-07-30] MEDS: regadenoson 0.4 Mg/5 ml Syringe IVP (12:41)
--- NOTE | 2022-07-30 13:16 | P.PN_ITS ---
Subjective Subjective: Seen this morning. Patient is awaiting a stress test. Echo did not show any wall motion abnormalities. Vitals/I&O/Wt Last Vital Signs Temp 97.7 F 07/30/22 11:23 Pulse 72 07/30/22 12:57 Resp 18 07/30/22 11:23 BP 123/59 07/30/22 12:57 Pulse Ox 95 07/30/22 11:23 O2 Del Method 07/30/22 11:23 FiO2 21 07/30/22 00:43 07/29/22 07/30/22 07/30/22 22:59 06:59 14:59 Intake Total 1000 / 1000 Output Total 700 / 700 Balance 300 / 300 Weight last 48 hrs Weight 88.723 kg Weight 93.44 kg Physical Exam Narrative: Alert S1, S2 No active chest pain Hemodynamically stable Heart rate 55 Pleasant and cooperative Appears stated age Euvolemic Nonfocal neuro exam No audible stridor or wheezing Data 07/30/22 04:55 07/30/22 04:55 A&P Assessment and plan (1) Chest pain: (2) Bradycardia, sinus: (3) Essential tremor: (4) Mild cognitive impairment with memory loss: (5) Sinus bradycardia: (6) Ulnar neuropathy at elbow of right upper extremity: (7) Peripheral neuropathy: (8) Diabetes: (9) Hypertension: Qualifiers: Hypertension type: essential hypertension Qualified Code(s): I10 - E ssential (primary) hypertension Plan Angina equivalent History of stents placed 80 mid left circumflex artery he also had mid LAD 70 to 75% stenosis which was recommended to be intervened as a staged procedure, FFR was nonischemic with a value of 0.83 Troponins without significant delta EKG without ischemic or infarctive changes Echo completed. No acute wall motion abnormalities noted. Stress test in the morning Request D-dimer No active chest pain Patient is stating that he mostly sleeps on his left arm undergoing social stressors because his is in [place] and immigration process is very daunting on him Patient to go for stress test today. Further management to be dictated after results. Hypertension: Optimize antihypertensive regimen Bradycardia: Hold metoprolol, check TSH EKG showing sinus bradycardia, no signs of second-degree or third-degree block N.p.o. after midnight Consistent carb diet for now Moderate sliding scale for diabetes history Full code Insomnia Patient takes melatonin at night Essential tremors We can continue primidone for now He follows up with Dr. Giron outpatient Attestations Medical Necessity Statement*: Stress test today. Diagnoses Chest pain R07.9 Bradycardia, sinus R00.1 Essential tremor G25.0 Mild cognitive impairment with memory loss G31.84 Sinus bradycardia R00.1 Ulnar neuropathy at elbow of right upper extremity G56.21 Peripheral neuropathy G62.9 Diabetes E11.9 Hypertension I10 Hypertension type: essential hypertension
--- NOTE | 2022-07-30 15:46 | NMCV_ITS ---
NM cassidy perf SPECT r/s* [id number] Bhavik Gaffney Age: 71 Gender: M : 1950 Exam Date: 07/30/2022 15:46 Ordering Phys: Edmund Wilson MD Technologist: RONNIE Brand Exam Location: [facility] Indications: CHEST PAIN STRESS TEST Please see separate stress test report in [facility] for full findings IMAGE PROTOCOL Rest/Stress 1 Lexiscan Day Radiopharmaceutical Dose (mCi) Administration Site Administered by Rest: Tc-99m 10.9 IV RONNIE Brand Sestamibi Stress:Tc-99m 32.5 IV RONNIE Hines Sestamibi Rest: 30-Jul-2022 60 Discovery 630 Stress: 30-Jul-2022 30 Discovery 630 0.4mg Lexiscan. Images obtained in supine and prone position. SPECT RESULTS Technical Quality: Excellent Raw Data Analysis: Normal Image Corrections: No attenuation or motion correction applied Summed Stress Score: 3 Summed Rest Score: 0 Summed Difference Score: 3 PERFUSION FINDINGS Small area of decreased tracer uptake was noted in the basal and mid inferolateral region with significant reversibility FUNCTIONAL RESULTS (calculated via Gated SPECT) Stress Image LV EF (%): 77 Stress EDV (mL):96 TID: 0.85 Stress ESV (mL):22 FUNCTIONAL FINDINGS: Segmental wall motion analysis revealing no gross wall motion abnormalities IMPRESSIONS 1. Small area of reversible defect in the inferolateral region, suggestive of ischemia in the distribution of the left circumflex artery. 2. Normal LV ejection fraction 77%. 3. LV wall motion analysis revealing no gross wall motion abnormalities. 4. Normal LV volume No similar previous studies are available for comparison Dr Nuria Licona MD [facility] (Electronically Signed) Final Date: 30 July 2022 17:16 S
[2022-07-30 16:49] LABS: Glucose Point of Care 213 mg/dL (70-110)
[2022-07-30] MEDS: enoxaparin 40 mg/0.4 mL Syringe SUBCUT (17:48)
[2022-07-30] MEDS: insulin lispro 100 unit/1 mL SUBCUT (17:48)
[2022-07-30 20:55] LABS: Glucose Point of Care 143 mg/dL (70-110)
[2022-07-30] MEDS: atorvastatin 40 mg Tablet PO (21:56)
[2022-07-30] MEDS: insulin glargine 100 units/1 mL 31 UNIT SUBCUT (21:56)
[2022-07-31] VITALS (63 sets, daily range): BP systolic 114–178; BP diastolic 61–76; PULSE 49–73; RESP 12–24; TEMP 36.5–37.1; O2SAT 93–99
[2022-07-31] MEDS: lisinopril 20 mg Tablet 40 MG PO (05:19)
[2022-07-31] MEDS: hydroCHLOROthiazide 25 mg Tablet PO (05:20)
[2022-07-31] MEDS: aspirin 81 mg EC Tablet PO (05:20)
[2022-07-31] MEDS: clopidogrel 75 mg Tablet PO (05:20)
[2022-07-31] MEDS: amlodipine 5 mg Tablet PO ×2 (05:21→17:53)
[2022-07-31] MEDS: levothyroxine 125 mcg Tablet PO (05:21)
--- NOTE | 2022-07-31 06:34 | PM.CONSULT ---
Providers/Reason For Consult Consulting Physician/Specialty*: Triston Giron MD/ Cardiology Reason for Consult*: Chest pain/ abnormal stress test Requesting Physician: Dr Dewitt Attending Physician: Maddy Dewitt MD Primary Care Provider: Brittanie Mcguire MD History of Present Illness History of Present Illness Bhavik Gaffney is a 71 year old male with past medical history of hypertension, CAD with PCI of left circumflex artery to hospital with left arm pain. He feels the pain is similar to his anginal pain STEMI. Stress test performed that showed ischemia in left circumflex artery territory. Troponins have not trended up significantly. Echo shows normal LV systolic function. Review of Systems Const: Denies: fatigue Card: Reports: chest pain and palpitations; Denies: irregular heart rhythm, edema, swelling of feet/ankles, lightheadedness, syncope, pre-syncope, dyspnea on exertion, orthopnea or leg pain with exertion Resp: Denies: dyspnea or productive cough Musc: Reports: neck pain and back pain; Denies: joint pain Neuro: Reports: headache(s); Denies: dizziness Psych: Denies: anxiety, depression, suicidal ideation or homicidal ideation Dominguez/Lymph: Reports: easy bruising and easy bleeding Medications/Allergies Home Medications Medication Instructions Recorded Confirmed Last Taken Type aspirin 81 mg tablet,delayed 81 mg PO QAM 07/07/20 08/02/22 07/29/22 History release insulin aspart U-100 100 unit/mL 12 unit SUBCUT QAM 07/07/20 08/02/22 07/29/22 History (3 mL) subcutaneous pen (Novolog see pharmacy FlexPen U-100 Insulin aspart) comment insulin glargine 100 unit/mL (3 31 unit SUBCUT BEDTIME 07/07/20 08/02/22 07/28/22 History mL) subcutaneous pen (Lantus see pharmacy Solostar U-100 Insulin) comment melatonin 3 mg capsule 6 mg PO BEDTIME 07/07/20 08/02/22 07/28/22 History omeprazole 20 mg tablet,delayed 20 mg PO QPM 07/07/20 08/02/22 07/28/22 History release gabapentin 300 mg capsule 600 mg PO TID@09,15,09/10/21 08/02/22 07/29/22 07:30 History hydrochlorothiazide 25 mg tablet 25 mg PO QAM 09/10/21 08/02/22 07/29/22 History calcium polycarbophil 625 mg tablet 1,250 mg PO BID 03/11/22 08/02/22 07/29/22 History cholecalciferol (vitamin D3) 50 4,000 unit PO QAM 03/11/22 08/02/22 07/29/22 History mcg (2,000 unit) tablet (Vitamin D3) galantamine 4 mg tablet 4 mg PO BID 90 days #180 tabs 04/28/22 08/02/22 07/29/22 Rx primidone 50 mg tablet 50 mg PO BID 90 days #180 tabs 04/28/22 08/02/22 07/29/22 Rx atorvastatin 80 mg tablet 40 mg PO BEDTIME 07/29/22 08/02/22 07/28/22 History clopidogrel 75 mg tablet 75 mg PO QAM 07/29/22 08/02/22 07/29/22 History folic acid 1 mg tablet 1 mg PO DAILY 07/29/22 08/02/22 Unknown History levothyroxine 125 mcg tablet 125 mcg PO QAM 07/29/22 08/02/22 07/29/22 History lisinopril 40 mg tablet 40 mg PO QAM 07/29/22 08/02/22 07/29/22 History metoprolol succinate 50 mg 50 mg PO QAM 07/29/22 08/02/22 07/29/22 History tablet,extended release 24 hr mirtazapine 30 mg tablet 15 mg PO BEDTIME 07/29/22 08/02/22 07/28/22 History omega-3 fatty acids 1,000 mg 1,000 mg PO BID 07/29/22 08/02/22 07/29/22 History capsule amlodipine 5 mg tablet 5 mg PO DIRECTED 08/02/22 Unknown History nitroglycerin 0.4 mg sublingual 0.4 mg sublingual Q5M PRN Chest 08/02/22 Unknown Rx tablet (Nitrostat) Pain #25 tabs Allergies Allergy/AdvReac Type Severity Reaction Status Date / Time No Known Allergies Allergy Verified 07/29/22 14:17 Current Medications Generic Name Dose Route Start Last Admin Trade Name Freq PRN Reason Stop Dose Admin Amlodipine Besylate 5 mg 07/30/22 06:00 07/31/22 05:21 Amlodipine 5 Mg Tablet PO 5 mg QAM BK Administration Aspirin 81 mg 07/30/22 06:00 07/31/22 05:20 Aspirin 81 Mg Ec Tablet PO 81 mg QAM BK Administration Atorvastatin Calcium 40 mg 07/29/22 21:00 07/30/22 21:56 Atorvastatin 40 Mg Tablet PO 40 mg BEDTIME BK Administration Clopidogrel Bisulfate 75 mg 07/30/22 06:00 07/31/22 05:20 Clopidogrel 75 Mg Tablet PO 75 mg QAM BK Administration Enoxaparin Sodium 40 mg 07/29/22 17:00 07/30/22 17:48 Enoxaparin 40 Mg/0.4 Ml Syringe SUBCUT 40 mg Q24H BK Administration Folic Acid 1 mg 07/30/22 09:00 07/30/22 08:34 Folic Acid 1 Mg Tablet PO 1 mg DAILY BK Administration Hydrochlorothiazide 25 mg 07/30/22 06:00 07/31/22 05:20 Hydrochlorothiazide 25 Mg Tablet PO 25 mg QAM BK Administration Insulin Glargine 31 unit 07/29/22 21:00 07/30/22 21:56 Insulin Glargine 100 Units/1 Ml SUBCUT 31 unit BEDTIME BK Administration Insulin Human Lispro 0 unit 07/29/22 18:00 07/30/22 17:48 Insulin Lispro 100 Unit/1 Ml SUBCUT 6 unit TIDWM BK Administration Protocol Levothyroxine Sodium 125 mcg 07/30/22 06:00 07/31/22 05:21 Levothyroxine 125 Mcg Tablet PO 125 mcg QAM BK Administration Lisinopril 40 mg 07/30/22 06:00 07/31/22 05:19 Lisinopril 20 Mg Tablet PO 40 mg QAM BK Administration Pantoprazole Sodium 40 mg 07/30/22 09:00 07/30/22 08:[address] 40 Mg Tablet PO 40 mg DAILY BK Administration Senna/Docusate Sodium 1 tab 07/30/22 09:00 07/30/22 08:34 Sennosides-Docusate Tablet PO 1 tab DAILY BK Administration PFSH Acute PFSH: Medical History (Updated 08/02/22 @ 16:42 by Triston Giron M.D) Atherosclerosis of coronary artery Diabetes Diverticul disease small and large intestine, no perforati or abscess Hernia Hyperlipidemia Hypertension Psychiatric care Squamous cell cancer of scalp and skin of neck Surgical History History of bowel resection Family History Father Suicide Psychiatric illness Mother Cancer Hypertension Social History Smoking and tobacco status: former smoker Alcohol intake: current Desire information about alcohol rehabilitation?: No Counseling given: No Vitals/I&O/Wt Last Vital Signs Temp 98.3 F 07/31/22 03:46 Pulse 52 L 07/31/22 03:46 Resp 16 07/31/22 03:46 BP 146/70 07/31/22 03:46 Pulse Ox 93 07/31/22 03:46 O2 Del Method 07/31/22 03:46 FiO2 21 07/30/22 00:43 07/30/22 07/30/22 07/31/22 14:59 22:59 06:59 Intake Total 480 / 480 Output Total 300 / 300 200 / 500 Balance 180 / 180 -200 / -20 Weight last 48 hrs Weight 195 lb 9.6 oz Weight 206 lb Physical Exam Narrative: GENERAL: Patient is alert, awake and oriented x3. [] NECK: No jugular vein distension. [] HEENT: No cyanosis. No icterus. No pallor. [] HEART: Regular S1 and S2. No murmur, rub or gallop. [] LUNGS: Clear to auscultate bilaterally. [] CENTRAL NERVOUS SYSTEM: Grossly nonfocal. [] EXTREMITIES: Lower extremities with no edema bilaterally. Pulses palpable in the lower extremities, both dorsalis pedis and posterior tibial. [] Data 07/30/22 04:55 07/30/22 04:55 A&P Assessment and plan (1) Chest pain: (2) Diabetes: (3) Hyperlipidemia: (4) Hypertension: Qualifiers: Hypertension type: essential hypertension Qualified Code(s): I10 - Essential (primary) hypertension Plan Patient has chest pain symptoms that are similar to what he experienced prior to MD. Troponins have not trended up. Stress test is abnormal. We will proceed with coronary angiogram with possible percutaneous coronary intervention. Keep patient n.p.o. ECHO done Continue dual antiplatelet therapy Thank you for involving us with care of this patient. We will continue to follow. Please call with questions Consult Attestations Medical Necessity Statement: Care expected to cross 2 midnights. Coding Level of Care Code Acute Code for g Fwd Diagnoses Chest pain R07.9 Diabetes E11.9 Hyperlipidemia E78.5 Hypertension I10 Hypertension type: essential hypertension
[2022-07-31 06:46] LABS: Glucose Point of Care 125 mg/dL (70-110)
--- NOTE | 2022-07-31 07:25 | XACV_ITS ---
Exam Room: [facility] Ht: 173 cm Wt: 88 kg BSA: 2.08 m2 Gender: Male : 1950 Any Known Allergies: No known allergies Exam Priority: Routine Procedure(s): Procedure Description: Diagnostic procedure Procedure Description: Coronary Angiography Procedure Description: Pressure Wire Diagnostic Cath Status: Urgent Diagnostic Findings * INDICATION: New onset angina/ abnormal stress test. * Left Main is very short. No significant disease noted. * Proximal Circumflex: significant 80% stenosis, SAV: 3 flow. Mid left circumflex artery has patent prior stent. * Mid Left Anterior Descending: obstructive 70% stenosis, SAV: 3 flow. * Proximal Right Coronary Artery: obstructive 70% stenosis, SAV: 3 flow. * Distal Right Coronary Artery: obstructive 70% stenosis, SAV: 3 flow. * Posterior Descending Right: significant 80% stenosis, SAV: 3 flow. * Coronary angiography shows right dominance. Interventional Findings * Procedure Detail: We engaged left main artery with XB 3.0 guide catheter. IV heparin was administered to maintain ACT above 250s. We normalized IFR wire and then advanced into distal LAD. iFR value of 0.81 was obtained that was significant. iFR pullback was performed that showed a value of 0.83. Pullback gradient was significant at mid LAD confirming location of the stenosis. iFR wire was removed and final angiogram was performed. Patient left the Deal Architect in a stable condition.. Conclusions 1. Severe multivessel coronary artery disease.. 2. LAD severe stenosis confirmed with iFR value of 0.81. Recommendations * We will refer to CT surgery for heart team discussion as he will benefit from surgical revascularization. * Continue current medications. * Aggressive risk factor modification. * Outpatient cardiology follow up in 1 week. Interventional RX Recommendation: CABG Diagnostic RX Recommendation: CABG Anticoagulation: Heparin Pressures Phase:Rest AO : 111 / 52 ( 71 ) @ 11:11:00 AM 97 / 55 ( 75 ) @ 11:13:00 AM 115 / 68 ( 89 ) @ 11:17:00 AM 134 / 61 ( 85 ) @ 11:23:00 AM 140 / 66 ( 98 ) @ 11:36:00 AM Clinical Evaluation EBL: 5mL-10mL Procedural Details Procedure Consent Obtained. Current Diagnosis : Chest Pain. Pre-Procedure Time Out. Identified patient by full name and date of as verbalized by the patient/guarantor. Does the consent match the physician's order: Yes. Accurate & Complete Informed Consent: Yes. Inpatient/Outpatient History & Physical on Chart: Yes. If H&P is completed, is and addenduem needed: No; If yes, is the addendum complete: N/A. Visualize and Verify Site with Patient/Guarantor: N/A. Relevant Radiology Images available: Yes. Pre-op teaching completed and patient verbalized understanding. The risks, benefits, and alternatives of sedation and/or procedure were discussed by physician. The patient agrees to continue. Procedure started. [facility] Clinical Fraility Score: 3: Managing Well. Deal Architect Indications: Worsening Angina. Chest Pain Symptom Assessment: Typical Angina Symptoms. Correct patient, site and procedure confirmed by cath team. Current diagnosis: Chest Pain. PERRLA. Strong, equal hand fiber artist bilaterally. Lungs clear x 5 lobes. IV Site on Arrival: 18 gauge in the left anticubital. IV Fluids: 0.9% NaCl at KVO. 0 mL infused prior to labour market economist. Pre Procedural Pulses: right radial was 2+. Oxygen started at 2liters/min via nasal canula. right groin was prepped with chloroprep then draped in the usual sterile fashion. right radial was prepped with chloroprep then draped in the usual sterile fashion. Physician notified. Baseline sample Acquired. HR: 55 BPM. Physician arrived. Physician scrubbed in. Immediate Pre-Procedure Time Out. Correct Patient: Yes; Correct Procedure: Yes; Correct Site: Yes; Correct Patient Position: Yes; Correct Supplies: Yes; Dried Flammable Prep: Yes; Blood Products Available: N/A;. Lidocaine 1% infiltrated to the right radial. Arterial access obtained. A 5 [place] TIG catheter in over wire. Multiple views taken of right coronary artery. Catheter removed over the exchange wire. A 5 [place] JL3.5 catheter in over wire. Multiple views taken of left coronary artery. Physician review of cine films. Catheter removed over the exchange wire. 6 [place] XB 3 guide catheter was inserted over the wire. FFR guidewire was advanced through the guide catheter to lesion in the mid LAD. Wire out. FFR guidewire was advanced through the guide catheter to lesion in the mid LAD. Wire out. FFR guidewire was advanced through the guide catheter to lesion in the mid LAD. Results: 0.81. Wire out. Guide catheter out. Post Procedure: Pulses reassessed and unchanged. PERRLA. Strong, equal hand fiber artist bilaterally. No VTE prophylaxis required. Medication's Wasted: Nitro = 49.8 mg. Medication's Wasted: Heparin = 3000 units. Medication's Wasted: Other = Versed 1 mg. Total IV fluids: 50 mL. Post-op diagnosis: CAD. Complications: None. Responsiveness - Normal response to verbal stimuli; alert and oriented, PERRLA. Estimated blood loss: 5mL-10mL. Airway - Unaffected, no intervention required; spontaneous ventilation. Circulation: W/N/L, pulses unchanged. Nausea/Vomiting: No. Procedure completed. Patient transferred by bed to ICU. Vital chart was stopped. Access Site Site: Right Radial artery Sheath Size: 6 Fr Hemostasis Success: Unsuccessful Procedure Medications Start: 11:01 AM Stop: 11:01 AM Medication: Versed Amount: 1 mg Route: I.V. Start: 11:01 AM Stop: 11:01 AM Medication: Fentanyl Amount: 50 mcg Route: I.V. Start: 11:06 AM Stop: 11:06 AM Medication: Versed Amount: 1 mg Route: I.V. Start: 11:07 AM Stop: 11:07 AM Medication: Fentanyl Amount: 50 mcg Route: I.V. Start: 11:09 AM Stop: 11:09 AM Medication: Nitrogylcerin Amount: 200 mcg Route: I.A. Start: 11:12 AM Stop: 11:12 AM Medication: Heparin Amount: 5000 units Route: I.V. Start: 11:16 AM Stop: 11:16 AM Medication: Versed Amount: 1 mg Route: I.V. Start: 11: AM Stop: 11: AM Medication: Heparin Amount: 3000 units Route: I.V. I, the attending physician, have reviewed and verified all procedure medications. Yes, all medications given per verbal order History/Risk Factors Hypertension: Yes Dyslipidemia: Yes Peripheral Arterial Disease (PAD): No Myocardial Infarction (ID): Yes Obesity: No Renal Disease: No Prior Interventions PCI: Yes CABG: No Valve Surgery: No Date of PCI: 12/03/2020 Report Signatures Finalized by Triston Giron MD on 07/31/2022 04:05 PM
--- NOTE | 2022-07-31 11:03 | PC.NURSE ---
Report called to Veena, ICU
--- NOTE | 2022-07-31 11:03 | W.PM.OPSUD ---
Surgery/Procedure H&P Update DATE OF PROCEDURE: July 31, 2022 DATE H&P PERFORMED: 07/31/22 H&P UPDATE INFORMATION: I have reviewed H&P completed within last 30 days, I have examined patient prior to procedure and No changes to prior documentation PREOP DIAGNOSIS: Worsening angina/abnormal stress test PRIMARY INDICATION FOR PROCEDURE: Worsening angina/abnormal stress test PLANNED PROCEDURE: Left heart cath with possible percutaneous coronary intervention PATIENT REASSESSED PRIOR TO SEDATION, WITH NO CHANGE NOTED: Yes PHYSICAL EXAM: alert, oriented x 3, clear to auscultation bilaterally and regular rate & rhythm AIRWAY EVAL/ANESTHESIA PLAN: normal airway, ASA III, Local Anesthesia, Risks, benefits & alternatives of sedation and/or procedure discussed and Patient agrees to continue as planned ADDITIONAL INFORMATION: Moderate sedation
--- NOTE | 2022-07-31 12:05 | PC.NURSE ---
Patient arrived from dye lab technician at 1153. Patient reports no pain at this time. Belongings at bedside. Patient has no requests. see charting for assessment.
[2022-07-31 12:19] LABS: Glucose Point of Care 123 mg/dL (70-110)
--- NOTE | 2022-07-31 13:11 | PM.PN ---
Subjective Subjective: seen this am will be going for cath Vitals/I&O/Wt Last Vital Signs Temp 97.9 F 07/31/22 12:10 Pulse 65 07/31/22 13:05 Resp 15 07/31/22 13:05 BP 169/65 07/31/22 13:05 Pulse Ox 93 07/31/22 13:05 O2 Del Method 07/31/22 13:05 FiO2 21 07/30/22 00:43 07/30/22 07/31/22 07/31/22 22:59 06:59 14:59 Intake Total 480 / 480 Output Total 300 / 300 200 / 500 Balance 180 / 180 -200 / -20 Weight last 48 hrs Weight 88.723 kg Physical Exam Narrative: Alert S1, S2 No active chest pain Hemodynamically stable Pleasant and cooperative Appears stated age Euvolemic Nonfocal neuro exam No audible stridor or wheezing Data 07/30/22 04:55 07/30/22 04:55 A&P Assessment and plan (1) Chest pain: (2) Bradycardia, sinus: (3) Essential tremor: (4) Mild cognitive impairment with memory loss: (5) Sinus bradycardia: (6) Ulnar neuropathy at elbow of right upper extremity: (7) Peripheral neuropathy: (8) Diabetes: (9) Hypertension: Qualifiers: Hypertension type: essential hypertension Qualified Code(s): I10 - Essential (primary) hypertension Plan Angina equivalent History of stents placed 80 mid left circumflex artery he also had mid LAD 70 to 75% stenosis which was recommended to be intervened as a staged procedure, FFR was nonischemic with a value of 0.83 Troponins without significant delta EKG without ischemic or infarctive changes Echo completed. No acute wall motion abnormalities noted. Stress test abnormal. Request D-dimer No active chest pain Patient is stating that he mostly sleeps on his left arm undergoing social stressors because his is in [place] and immigration process is very daunting on him angiogram today Hypertension: Optimize antihypertensive regimen Bradycardia: Hold metoprolol, check TSH EKG showing sinus bradycardia, no signs of second-degree or third-degree block N.p.o. after midnight Consistent carb diet for now Moderate sliding scale for diabetes history Full code Insomnia Patient takes melatonin at night Essential tremors We can continue primidone for now He follows up with Dr. Giron outpatient Attestations Medical Necessity Statement*: angiogram today Diagnoses Chest pain R07.9 Bradycardia, sinus R00.1 Essential tremor G25.0 Mild cognitive impairment with memory loss G31.84 Sinus bradycardia R00.1 Ulnar neuropathy at elbow of right upper extremity G56.21 Peripheral neuropathy G62.9 Diabetes E11.9 Hypertension I10 Hypertension type: essential hypertension
--- NOTE | 2022-07-31 15:44 | PM.DCS ---
Discharge Providers Date of Admission: 07/29/22 15:09 Date of Discharge: July 31, 2022 Attending Provider at Admission: Maddy Dewitt MD Attending Provider at Discharge: Maddy Dewitt MD Primary Care Provider: Brittanie Mcguire MD Diagnoses at Discharge Discharge Diagnosis (1) Chest pain: Status: Resolved (2) Bradycardia, sinus: Status: Resolved (3) Essential tremor: Status: Acute (4) Mild cognitive impairment with memory loss: Status: Acute (5) Sinus bradycardia: Status: Resolved (6) Ulnar neuropathy at elbow of right upper extremity: Status: Acute (7) Peripheral neuropathy: Status: Acute (8) Diabetes: Status: Acute (9) Hypertension: Status: Acute Qualifiers: Hypertension type: essential hypertension Qualified Code(s): I10 - Essential (primary) hypertension Reason for Visit Reason for Visit: substernal/ L arm pain Brief History: As per Dr. Setve Gutierres Saurabh Gaffney is a 71 year old male with history of coronary disease, stent in circumflex, LAD showed atherosclerosis however not amenable to stent because of low FFR presented today with chief complaint of left arm numbness.? Patient woke up with left arm numbness around 7:30 AM and it lasted for about 3-1/2 hours until he was able to call 911, it resolved spontaneously without taking any aspirin or nitroglycerin.? He did not experience any chest pain, vomiting, diaphoresis.? He felt nauseous to some extent.? Patient is stating his heart rate always runs low and he kept taking metoprolol because it was never an issue for him he follows up with Dr. Preciado.? In the ER hospitalist requested to admit because of established history of cardiac disease.? She is chest pain-free not complaining of left arm numbness.? Hemodynamically stable heart rate 55 Hospital Course Hospital Course Patient presented with Unstable Angina. He had a stress test which was positive. Was taken for angiogram which showed 3 vessel disease. He was recommended CABG and given referral to [place] with Dr. Nolen. Patient was given a disc with his records and discharged home in stable condition. All questions answered to his satisfaction Physical Exam Narrative: Alert S1, S2 No active chest pain Hemodynamically stable Pleasant and cooperative Appears stated age Euvolemic Nonfocal neuro exam No audible stridor or wheezing Discharge Data Studies Completed and Pending Completed Studies During Hospitalization Category Date Time Status Sestamibi Stress Test Request Routine Exams 07/29/22 15:46 Draft XR chest 1V portable [id number] Urgent Exams 07/29/22 10:34 Completed NM cassidy perf SPECT r/s* [id number] Routine Nuc Med 07/30/22 15:46 Completed CV. echo complete* [id number] Routine Ultrasound 07/29/22 15:46 Completed Pending at discharge Category Date Time Status BAR PILOT request for service Routine Exams 07/31/22 07:25 Ordered Radiology Impressions Chest X-Ray 07/29/22 10:34 IMPRESSION: No acute findings. Laboratory Results WBC 4.8 10^3/uL (4.0-10.0) 07/30/22 04:55 RBC 4.37 10^6/uL (4.1-5.3) 07/30/22 04:55 Hgb 14.0 g/dL (11.7-16.6) 07/30/22 04:55 Hct 39.4 % (42.0-52.0) L 07/30/22 04:55 MCV 90.2 fl (80-94) 07/30/22 04:55 MCH 32.0 pg (28.0-34.0) 07/30/22 04:55 MCHC 35.5 g/dL (30.0-36.0) 07/30/22 04:55 RDW 13.3 % (12.1-15.1) 07/30/22 04:55 Plt Count 156 10^3/cmm (130-400) 07/30/22 04:55 MPV 9.1 fL (7.4-10.4) 07/30/22 04:55 Neut % (Auto) 60.4 % 07/30/22 04:55 Lymph % (Auto) 24.7 % 07/30/22 04:55 [place] % (Auto) 10.4 % 07/30/22 04:55 Eos % (Auto) 3.7 % 07/30/22 04:55 Baso % (Auto) 0.4 % 07/30/22 04:55 Neut # (Auto) 2.90 10^3/uL (1.8-7.7) 07/30/22 04:55 Lymph # (Auto) 1.2 10^3/uL (0.8-4.8) 07/30/22 04:55 [place] # (Auto) 0.5 10^3/uL (0.2-0.9) 07/30/22 04:55 Eos # (Auto) 0.2 10^3/uL (0.0-0.8) 07/30/22 04:55 Baso # (Auto) 0.0 10^3/uL (0.0-0.1) 07/30/22 04:55 Nucleated RBC % (auto) 0 % 07/30/22 04:55 Nucleated RBCs # 0.0 /100WBC 07/30/22 04:55 D-Dimer 0.47 ug/mIFEU (0-0.59) 07/29/22 10:50 Sodium 135 mmol/L (136-145) L 07/30/22 04:55 Potassium 4.0 mmol/L (3.5-5.1) 07/30/22 04:55 Chloride 98 mmol/L (98-107) 07/30/22 04:55 Carbon Dioxide 26 mmol/L (22-29) 07/30/22 04:55 Anion Gap 15.0 (5-19) 07/30/22 04:55 BUN 18 mg/dL (8-23) 07/30/22 04:55 Creatinine 1.1 mg/dL (0.7-1.2) 07/30/22 04:55 GFR Calculation Not Reportable 07/30/22 04:55 Glucose 63 mg/dL (65-115) L 07/30/22 04:55 POC Glucose 123 mg/dL (70-110) H 07/31/22 12:16 Calculated Osmolality 280 mOsm/kg (285-295) L 07/30/22 04:55 Calcium 9.6 mg/dL (8.5-10.5) 07/30/22 04:55 Magnesium 1.4 mg/dL (1.7-2.3) L 07/30/22 04:55 Total Bilirubin 0.5 mg/dL (0.15-1.2) 07/29/22 10:50 AST 26 U/L (0-40) 07/29/22 10:50 ALT 26 U/L (0-41) 07/29/22 10:50 Alkaline Phosphatase 98 U/L (40-130) 07/29/22 10:50 Troponin T Baseline 30 ng/L (0-15) H 07/29/22 10:50 Troponin T 120 Minute 31.54 ng/L (0-15) H 07/29/22 12:44 Delta Troponin T 1.54 ABS# (0-10) 07/29/22 12:44 Troponin T Hi Sens 6Hr 36.28 ng/L (0-15) H 07/29/22 16:45 Troponin T Hi Sens 6Hr Delta 6.28 ng/L (0-12) 07/29/22 16:45 Total Protein 7.8 g/dL (6.6-8.7) 07/29/22 10:50 Albumin 4.5 g/dL (3.5-5.2) 07/29/22 10:50 Globulin 3.3 g/dL (1.3-4.6) 07/29/22 10:50 TSH 0.68 uIU/mL (0.27-4.20) 07/29/22 12:41 Vitals Last Vital Signs Temp 97.9 F 07/31/22 12:10 Pulse 55 L 07/31/22 15:30 Resp 18 07/31/22 15:30 BP 159/68 07/31/22 15:30 Pulse Ox 93 07/31/22 15:30 O2 Del Method 07/31/22 15:30 FiO2 21 07/30/22 00:43 Discharge Plan Discharge Patient Disposition: Home Condition: Stable Prescriptions: Continued insulin aspart U-100 [Novolog FlexPen U-100 Insulin] 100 unit/mL (3 mL) insulin pen 12 unit SUBCUT QAM Lantus Solostar U-100 Insulin 100 unit/mL (3 mL) insulin pen 31 unit SUBCUT BEDTIME melatonin 3 mg capsule 6 mg PO BEDTIME omeprazole 20 mg tablet,delayed release (DR/EC) 20 mg PO QPM aspirin 81 mg tablet,delayed release (DR/EC) 81 mg PO QAM gabapentin 300 mg capsule 600 mg PO TID@09,15,21 primidone 50 mg tablet 50 mg PO BID 90 Days Qty: 180 3RF galantamine 4 mg tablet 4 mg PO BID 90 Days Qty: 180 3RF Rx Instructions: administer with AM and PM meals hydrochlorothiazide 25 mg tablet 25 mg PO QAM calcium polycarbophil 625 mg tablet 1,250 mg PO BID cholecalciferol (vitamin D3) [Vitamin D3] 50 mcg (2,000 unit) tablet 4,000 unit PO QAM atorvastatin 80 mg Tablet 40 mg PO BEDTIME omega-3 fatty acids 1,000 mg Capsule 1,000 mg PO BID metoprolol succinate 50 mg Tablet Extended Release 24 Hr 50 mg PO QAM mirtazapine 30 mg Tablet 15 mg PO BEDTIME levothyroxine 125 mcg Tablet 125 mcg PO QAM clopidogrel 75 mg tablet 75 mg PO QAM lisinopril 40 mg tablet 40 mg PO QAM folic acid 1 mg Tablet 1 mg PO DAILY No Action Nitrostat 0.4 mg tablet, sublingual 0.4 mg SUBLINGUAL Q5M PRN (Reason: Chest Pain) Qty: 25 1RF Rx Instructions: do not exceed 3 doses per episode amlodipine 5 mg tablet 5 mg PO DIRECTED Rx Instructions: Take 1 tab in the AM and then take 1 tab in the PM as needed for elevated blood pressure Discharge Orders: Discharge Order (Routine); Ordered 07/31/22 Ordered By: Maddy Dewitt Referrals: Brittanie Mcguire MD [Primary Care Provider] - 4-7 days Freddy Cho MD [Referring] - 1 week (they will call you tuesday for appointment) Discharge Diet: Cardiac Patient Instructions: Opioid Safety Activity Restrictions/Additional Instructions: Follow up with ct surgery as advised. Their office will call you Tuesday for appointment. Return to ER if you have chest pain or any other worsening symptoms. Discharge Attestations Time Spent in Discharge Care*: less than 30 min Status at Discharge: Cognitive status at discharge: cognitively intact, Behavioral status at discharge: cooperative, Quality Metrics Clinical Quality Measures [ No reported AMI, CVA or VTE this stay] Coding Level of Care Code Acute Code for Chg Fwd Diagnoses Chest pain R07.9 Bradycardia, sinus R00.1 Essential tremor G25.0 Mild cognitive impairment with memory loss G31.84 Sinus bradycardia R00.1 Ulnar neuropathy at elbow of right upper extremity G56.21 Peripheral neuropathy G62.9 Diabetes E11.9 Hypertension I10 Hypertension type: essential hypertension
--- NOTE | 2022-07-31 16:16 | PC.NURSE ---
TR band removal: Air removed from TR band Q15min until 18ml of air removed. No complications. Bandage in place with no hematoma or external bleeding noted at this time. Band removed 1603.
[2022-07-31 17:13] LABS: Glucose Point of Care 141 mg/dL (70-110)
[2022-07-31] MEDS: insulin lispro 100 unit/1 mL SUBCUT (17:23)
--- NOTE | 2022-07-31 17:54 | PC.NURSE ---
Dr. Dewitt contacted about patients blood pressure at 171/77. Patient having consistent elevated blood pressure readings. Orders received to give amlodipine 5mg to patient NOW and instruct patient to check BP at home and dose BID. Medication administered per JUL and teaching provided to patient.
--- NOTE | 2022-07-31 18:45 | PC.NURSE ---
Extensive education given on Follow up appointments and care. Patient educated on how to take blood pressure at home and taking amlodipine 5mg BID. Education provided on care after cath access, and use of Right wrist. Patient verbalized understanding of all teachings.
== END 2022-07-31 16:40 | disposition home or self-care (01) ==
LOC: ER 13:32 → MEDSURG 15:09 → ICU 07-31 12:11
PROVIDERS: Internal Medicine; Physician Assistant; Admitting Provider Internal Medicine; Emergency Provider Emergency Medicine; PCP Family Medicine; Visit Provider Internal Medicine
DX: I25.110 Atherosclerotic heart disease of native coronary artery with unstable angina pectoris (principal); Z95.5 Presence of coronary angioplasty implant and graft; E11.42 Type 2 diabetes mellitus with diabetic polyneuropathy; E78.5 Hyperlipidemia, unspecified; I10 Essential (primary) hypertension; Z87.891 Personal history of nicotine dependence; R00.1 Bradycardia, unspecified; G25.0 Essential tremor; G31.84 Mild cognitive impairment of uncertain or unknown etiology; R94.39 Abnormal result of other cardiovascular function study; Z79.4 Long term (current) use of insulin; Z79.82 Long term (current) use of aspirin; Z79.02 Long term (current) use of antithrombotics/antiplatelets
CPT/HCPCS: 36415; 36416; 71045; 78452; 80048; 80053; 82962; 83735; 84443; 84484; 85025; 85378; 93005; 93017; 93306; 93454; 93571; 94660; 96372; 96374; 99152; 99153; 99285; A9500; C1769; C1887; C1894; G0378; J1644; J1650; J1815; J2250; J2785; J3010; J3490; J7030; J7799; Q9967

== ENCOUNTER → 2022-09-10 09:00 | Outpatient (BNVA) | payer OTHER, SELFPAY | PROVIDERS: PCP Family Medicine; Visit Provider Nurse Practitioner Family | DX: I25.119 Atherosclerotic heart disease of native coronary artery with unspecified angina pectoris (principal); I10 Essential (primary) hypertension; Z95.1 Presence of aortocoronary bypass graft; Z87.891 Personal history of nicotine dependence; Z79.82 Long term (current) use of aspirin | CPT/HCPCS: 99214 ==

== ENCOUNTER → 2022-10-27 08:50 | Outpatient (BNVA) | payer OTHER, SELFPAY | PROVIDERS: PCP Family Medicine; Visit Provider Specialist | DX: G25.0 Essential tremor (principal); G31.84 Mild cognitive impairment of uncertain or unknown etiology; E11.42 Type 2 diabetes mellitus with diabetic polyneuropathy; Z79.4 Long term (current) use of insulin | CPT/HCPCS: 99214 ==

== ENCOUNTER → 2022-11-01 14:05 | Outpatient (BNVA) | payer OTHER, SELFPAY | PROVIDERS: PCP Family Medicine; Visit Provider Internal Medicine | DX: I25.119 Atherosclerotic heart disease of native coronary artery with unspecified angina pectoris (principal); E78.5 Hyperlipidemia, unspecified; I10 Essential (primary) hypertension; E11.9 Type 2 diabetes mellitus without complications; Z87.891 Personal history of nicotine dependence; Z95.1 Presence of aortocoronary bypass graft; Z79.4 Long term (current) use of insulin | CPT/HCPCS: 99214 ==

== ENCOUNTER → 2023-06-06 14:05 | Outpatient (BNVA) | payer OTHER, SELFPAY | PROVIDERS: PCP Family Medicine; Visit Provider Internal Medicine | DX: I25.119 Atherosclerotic heart disease of native coronary artery with unspecified angina pectoris (principal); E78.5 Hyperlipidemia, unspecified; I10 Essential (primary) hypertension; E11.9 Type 2 diabetes mellitus without complications; Z79.4 Long term (current) use of insulin; Z87.891 Personal history of nicotine dependence | CPT/HCPCS: 99214 ==

== ENCOUNTER 2023-10-03 10:45 | Emergency (ER) | payer OTHER, SELFPAY ==
[2023-10-03] VITALS (24 sets, daily range): BP systolic 128–159; BP diastolic 68–78; PULSE 43–56; RESP 6–27; TEMP 36.4; O2SAT 96–100; BMI 27.0
--- NOTE | 2023-10-03 11:04 | XRR_ITS ---
PROCEDURE INFORMATION: Exam: XR Chest Exam date and time: 10/03/2023 11:08 AM Age: 72 years old Clinical indication: Other: Poss esophageal food bolus TECHNIQUE: Imaging protocol: Radiologic exam of the chest. Views: 1 view. COMPARISON: CR XR chest 1V portable [id number] 07/29/2022 10:43 AM FINDINGS: Lungs: Small amount of new atelectasis in the left lung base. Otherwise, unremarkable. Pleural spaces: Unremarkable. No pleural effusion. No pneumothorax. Heart/Mediastinum: Unremarkable. No cardiomegaly. Bones/joints: Unchanged mild scoliosis with multilevel spondylosis. Unchanged bilateral shoulder arthritis. Other findings: New surgical changes. XR/XR chest 1V portable [id number] IMPRESSION: 1. Small amount of new atelectasis left lung base. 2. New surgical changes. 3. No other acute findings.
--- NOTE | 2023-10-03 11:05 | W.ED.GENADLT ---
HPI - General Adult General: Chief complaint: Airway/Esophagus Foreign Body Stated complaint: [facility], [facility] in [facility] Time Seen by Provider: 10/03/23 11:00 Source: patient Mode of arrival: ambulatory Limitations: no limitations History of Present Illness: Patient is a nice 72-year-old male who presents to ED today stating he feels he has a piece of cantaloupe stuck in his throat. Patient states he was eating breakfast when he accidentally swallowed a large piece of cantaloupe. Patient feels like he was able to get some of the food bolus up but feels like there is a remainder piece still stuck. He states he has been able to hold down liquid but has not been able to eat anything solid as it comes right back up . Onset (ago): hour(s) Relieving factors: none Exacerbating factors: other (swallowing) Associated symptoms: Reports no associated symptoms; Deny chest pain or dyspnea Treatments prior to arrival: none Review of Systems ENMT: Reports: other (fb sensation throat) Card: Denies: chest pain Resp: Denies: dyspnea GI: Denies: abdominal pain PFSH ED PFSH: Medical History Atherosclerosis of coronary artery CABG x3, Dr. Cho, 08/23/2022 Hyperlipidemia Hypertension Squamous cell cancer of scalp and skin of neck Diverticul disease small and large intestine, no perforati or abscess Hernia Surgical History History of bowel resection Family History Father Suicide Psychiatric illness Mother Cancer Hypertension Social History Smoking and tobacco/nicotine status: former use of tobacco/nicotine Alcohol intake: current Substance/Drug Use: never Physical Exam Const: COMMON NORMALS: no acute distress, average body habitus, patient oriented x3, no limitations, healthy appearing, alert and well nourished Neck/C-Spine: COMMON NORMALS: full ROM GENERAL: Yes normal visual inspection, No anterior neck swelling and No submandibular swelling Chest: COMMONS NORMALS: normal inspection of the chest Resp: COMMON NORMALS: normal respiratory effort and clear to auscultation bilaterally AUSCULTATION: clear to auscultation bilaterally Cardio: COMMON NORMALS: regular rate and regular rhythm RATE: regular rate RHYTHM: regular rhythm GI: COMMON NORMALS: Normal to inspection, nondistended, normoactive bowel sounds present, Soft to palpation and non-tender PALPATION: Yes Soft to palpation Neuro: COMMON NORMALS: patient oriented x3 SENSORIUM/ORIENTATION: Yes alert Course Vital Signs: Vital signs: Vital Signs Temperature 97.5 F L 10/03/23 10:53 Pulse Rate 44 L 10/03/23 12:30 Respiratory Rate 18 10/03/23 12:30 Blood Pressure 141/68 10/03/23 12:30 Pulse Oximetry 96 10/03/23 12:30 Oxygen Delivery Me thod Room Air 10/03/23 10:53 [facility] - General Adult Medical Decision Making Patient was treated with IV Glucagon and Ativan. He was then allowed to drink water and attempt to move food bolus down. He did this successfully. He was then trialed with an oral challenge and was able to successfully hold down pudding and crackers without difficulty. Patient will be allowed discharge at this time. Return to ED precautions given. Medical Records I reviewed the patient's medical records. Lab Data Radiology Impressions Chest X-Ray 10/03/23 11:04 IMPRESSION: 1. Small amount of new atelectasis left lung base. 2. New surgical changes. 3. No other acute findings. All radiology interpretation(s) finalized by discharge Discharge Plan Discharge Patient Disposition: Home Clinical Impression: Esophageal obstruction due to food impaction Condition: Stable Prescriptions: No Action melatonin 3 mg capsule 6 mg PO BEDTIME omeprazole 20 mg tablet,delayed release (DR/EC) 20 mg PO QPM gabapentin 300 mg capsule 600 mg PO TID@09,15,21 aspirin 81 mg tablet,delayed release (DR/EC) 325 mg PO QAM insulin aspart U-100 [Novolog FlexPen U-100 Insulin] 100 unit/mL (3 mL) insulin pen 15 unit SUBCUT QAM Patient Comments: Sliding scale Lantus Solostar U-100 Insulin 100 unit/mL (3 mL) insulin pen 22 unit SUBCUT BEDTIME lisinopril 20 mg tablet 20 mg PO DAILY Qty: 90 3RF calcium polycarbophil 625 mg tablet 1,250 mg PO BID galantamine 4 mg tablet 4 mg PO BID 90 Days Qty: 180 3RF Rx Instructions: administer with AM and PM meals primidone 50 mg tablet 50 mg PO BID 90 Days Qty: 180 3RF Nitrostat 0.4 mg tablet, sublingual 0.4 mg SUBLINGUAL Q5M PRN (Reason: Chest Pain) Qty: 25 1RF Rx Instructions: do not exceed 3 doses per episode cholecalciferol (vitamin D3) [Vitamin D3] 50 mcg (2,000 unit) tablet 4,000 unit PO QAM atorvastatin 80 mg Tablet 40 mg PO BEDTIME omega-3 fatty acids 1,000 mg Capsule 1,000 mg PO BID metoprolol succinate 50 mg Tablet Extended Release 24 Hr 50 mg PO QAM levothyroxine 125 mcg Tablet 125 mcg PO QAM mirtazapine 30 mg tablet 30 mg PO BEDTIME Discharge Orders: Discharge ED (Routine); Ordered 10/03/23 Ordered By: Itzel Rivera Referrals: Brittanie Mcguire MD [Primary Care Provider] - Activity Restrictions/Additional Instructions: As we discussed, after medications you are able to eat and drink here successfully and feel like the food bolus has alleviated. As we discussed, if symptoms return and you are not able to hold down food or liquid you need to return to the emergency department for further evaluation. Coding Level of Care Code ED Orange Picking Supervisor for Meliton Farr
[2023-10-03] MEDS: glucagon 1 mg/mL KIT 1 mL IVP (12:03)
== END 2023-10-03 14:12 | disposition home or self-care (01) ==
PROVIDERS: Emergency Provider Physician Assistant; PCP Family Medicine
DX: T18.128A Food in esophagus causing other injury, initial encounter (principal); W44.F3XA Food entering into or through a natural orifice, initial encounter; Z79.82 Long term (current) use of aspirin; Z79.4 Long term (current) use of insulin; Z87.891 Personal history of nicotine dependence; I25.10 Atherosclerotic heart disease of native coronary artery without angina pectoris; Z95.1 Presence of aortocoronary bypass graft; E78.5 Hyperlipidemia, unspecified; I10 Essential (primary) hypertension
CPT/HCPCS: 71045; 96374; 99284; J1610

== ENCOUNTER → 2023-10-19 10:00 | Outpatient (BNVA) | payer OTHER, SELFPAY | PROVIDERS: PCP Family Medicine; Referring Provider Family Medicine; Visit Provider Specialist | DX: G62.89 Other specified polyneuropathies (principal); G25.0 Essential tremor; G31.84 Mild cognitive impairment of uncertain or unknown etiology; G37.9 Demyelinating disease of central nervous system, unspecified | CPT/HCPCS: 99214; 99215 ==

== ENCOUNTER 2023-11-03 21:54 | Emergency (ER) | payer OTHER, SELFPAY ==
[2023-11-03 22:01] VITALS: PULSE 56; RESP 18; TEMP 36.6; O2SAT 98; BMI 25.4
--- NOTE | 2023-11-03 23:16 | XRR_ITS ---
PROCEDURE INFORMATION: Exam: XR Left Finger(s) Exam date and time: 11/03/2023 11:29 PM Age: 73 years old Clinical indication: Injury or trauma; Other: Cut; Laceration; Left; Index finger; Additional info: Laceration; Index. Cut finger with knife and small laceration on left 2nd digit TECHNIQUE: Imaging protocol: Radiologic exam of the left fingers. Views: Minimum 2 views. COMPARISON: No relevant prior studies available. FINDINGS: Bones/joints: Osseous demineralization. No evidence of acute fracture or dislocation. [id number] degenerative changes of the interphalangeal joints. Soft tissues: The soft tissues are within normal limits. XR/XR finger LT min 2V [id number] IMPRESSION: No evidence of acute fracture or dislocation.
--- NOTE | 2023-11-03 23:16 | W.ED.WOUNDLC ---
HPI - Wound/Laceration General: Chief Complaint: Wound/Laceration Stated Complaint: Lac on finger Time Seen by Provider: 11/03/23 22:54 Source: patient Mode of arrival: ambulatory Limitations: no limitations History of Present Illness: Patient is a nice 73-year-old male presents to ED today for evaluation of a laceration to his left index finger that he sustained after he accidentally cut it using a knife just prior to arrival. Last tetanus unknown. Bleeding is controlled. States knife was clean. Onset (ago): hour(s) Extremity Location: Left: hand (index finger) Place: home Patient tetanus UTD: No Context: accidental Associated symptoms: Reports no associated symptoms Review of Systems Musc: Reports: extremity pain Skin/Breast: Reports: other (laceration L index finger) Neuro: Denies: numbness in extremities or sensory changes PFSH ED PFSH: Medical History Atherosclerosis of coronary artery CABG x3, Dr. Cho, 08/23/2022 Hyperlipidemia Hypertension Squamous cell cancer of scalp and skin of neck Diverticul disease small and large intestine, no perforati or abscess Hernia Surgical History History of bowel resection Family History Father Suicide Psychiatric illness Mother Cancer Hypertension Social History Smoking and tobacco/nicotine status: former use of tobacco/nicotine (quit in 1987) Alcohol intake: current Substance/Drug Use: never Physical Exam Const: COMMON NORMALS: no acute distress, patient oriented x3, no limitations, healthy appearing, alert and well nourished Extremity: COMMON NORMALS: full ROM and capillary refill normal GENERAL: Yes normal exam except as noted LEFT UPPER EXTREMITY: Yes hand & digits (small laceration palmar distal finger pad L index finger) Left hand and digits: Yes ROM (normal), Yes neurovascular exam (normal) and Yes tendon exam (no tendon involvement present) Neuro: COMMON NORMALS: patient oriented x3, moves all extremities, no focal motor deficits and no sensory deficits noted SENSORIUM/ORIENTATION: Yes alert Skin: TRAUMA: laceration Course Vital Signs: Vital signs: Vital Signs Temperature 97.8 F 11/03/23 22:01 Pulse Rate 56 L 11/03/23 22:01 Respiratory Rate 18 11/03/23 22:01 Pulse Oximetry 98 11/03/23 22:01 MDM - Wound/Laceration Medical Decision Making XR negative. Updated tetanus. Wound was copiously irrigated and repaired with skin adhesive/glue. Return to ED precautions given. XR interpretation done by ED provider, pending radiology final review Discharge Plan Discharge Patient Disposition: Home Clinical Impression: Laceration of left index finger Qualifiers: Encounter type: initial encounter Damage to nail status: without damage Foreign body presence: without foreign body Qualified Code(s): S61.211A - Laceration without foreign body of left index finger without damage to nail, initial encounter Condition: Stable Prescriptions: No Action melatonin 3 mg capsule 6 mg PO BEDTIME omeprazole 20 mg tablet,delayed release (DR/EC) 20 mg PO QPM gabapentin 300 mg capsule 600 mg PO TID@09,15,21 aspirin 81 mg tablet,delayed release (DR/EC) 325 mg PO QAM insulin aspart U-100 [Novolog FlexPen U-100 Insulin] 100 unit/mL (3 mL) insulin pen 15 unit SUBCUT QAM Patient Comments: Sliding scale Lantus Solostar U-100 Insulin 100 unit/mL (3 mL) insulin pen 22 unit SUBCUT BEDTIME lisinopril 20 mg tablet 20 mg PO DAILY Qty: 90 3RF empagliflozin 25 mg tablet 12.5 mg PO QDAY calcium polycarbophil 625 mg tablet 1,250 mg PO BID galantamine 4 mg tablet 4 mg PO BID 90 Days Qty: 180 3RF Rx Instructions: administer with AM and PM meals primidone 50 mg tablet 50 mg PO BID 90 Days Qty: 180 3RF Nitrostat 0.4 mg tablet, sublingual 0.4 mg SUBLINGUAL Q5M PRN (Reason: Chest Pain) Qty: 25 1RF Rx Instructions: do not exceed 3 doses per episode cholecalciferol (vitamin D3) [Vitamin D3] 50 mcg (2,000 unit) tablet 4,000 unit PO QAM atorvastatin 80 mg Tablet 40 mg PO BEDTIME omega-3 fatty acids 1,000 mg Capsule 1,000 mg PO BID metoprolol succinate 50 mg Tablet Extended Release 24 Hr 50 mg PO QAM levothyroxine 125 mcg Tablet 125 mcg PO QAM mirtazapine 30 mg tablet 30 mg PO BEDTIME Discharge Orders: Discharge ED (Routine); Ordered 11/04/23 Ordered By: Itzel Rivera Referrals: Brittanie Mcguire MD [Primary Care Provider] - Coding Level of Care Code ED Illuminating Engineer for Meliton Farr
[2023-11-04] MEDS: tetanus-dipt-pertussis 0.5 mL SDV IM (00:15)
== END 2023-11-04 01:03 | disposition home or self-care (01) ==
PROVIDERS: Emergency Provider Physician Assistant; PCP Family Medicine
DX: S61.211A Laceration without foreign body of left index finger without damage to nail, initial encounter (principal); Z79.82 Long term (current) use of aspirin; Z79.4 Long term (current) use of insulin; I25.10 Atherosclerotic heart disease of native coronary artery without angina pectoris; Z95.1 Presence of aortocoronary bypass graft; E78.5 Hyperlipidemia, unspecified; I10 Essential (primary) hypertension; Z87.891 Personal history of nicotine dependence; W26.0XXA Contact with knife, initial encounter; Z23 Encounter for immunization
CPT/HCPCS: 12001; 73140; 90471; 90715; 99283

== ENCOUNTER → 2023-11-08 12:25 | Outpatient (BNVA) | payer OTHER, SELFPAY | PROVIDERS: PCP Family Medicine; Visit Provider Internal Medicine | DX: I25.119 Atherosclerotic heart disease of native coronary artery with unspecified angina pectoris (principal); E78.5 Hyperlipidemia, unspecified; I10 Essential (primary) hypertension; E11.9 Type 2 diabetes mellitus without complications; Z87.891 Personal history of nicotine dependence; Z79.4 Long term (current) use of insulin | CPT/HCPCS: 99214 ==

== ENCOUNTER → 2024-05-15 14:56 | Outpatient (BNVA) | payer OTHER, SELFPAY | PROVIDERS: PCP Family Medicine; Visit Provider Internal Medicine | DX: I25.119 Atherosclerotic heart disease of native coronary artery with unspecified angina pectoris (principal); E78.5 Hyperlipidemia, unspecified; I10 Essential (primary) hypertension; E11.9 Type 2 diabetes mellitus without complications; Z79.4 Long term (current) use of insulin; Z87.891 Personal history of nicotine dependence | CPT/HCPCS: 99214 ==

== ENCOUNTER → 2024-10-17 11:29 | Outpatient (BNVA) | payer OTHER, SELFPAY | PROVIDERS: PCP Family Medicine; Visit Provider Specialist | DX: G62.89 Other specified polyneuropathies (principal); G25.0 Essential tremor; G31.84 Mild cognitive impairment of uncertain or unknown etiology; G37.9 Demyelinating disease of central nervous system, unspecified; Z87.891 Personal history of nicotine dependence | CPT/HCPCS: 99214 ==

== ENCOUNTER → 2024-11-21 08:07 | Outpatient (BNVA) | payer OTHER, SELFPAY | PROVIDERS: PCP Family Medicine; Visit Provider Nurse Practitioner Family | DX: I25.10 Atherosclerotic heart disease of native coronary artery without angina pectoris (principal); I10 Essential (primary) hypertension; E11.9 Type 2 diabetes mellitus without complications; Z79.4 Long term (current) use of insulin; E78.5 Hyperlipidemia, unspecified; Z79.82 Long term (current) use of aspirin; Z95.1 Presence of aortocoronary bypass graft; Z87.891 Personal history of nicotine dependence; I25.2 Old myocardial infarction | CPT/HCPCS: 99214 ==

== ENCOUNTER → 2024-12-26 10:06 | Outpatient (BNVA) | payer OTHER, SELFPAY | PROVIDERS: PCP Family Medicine; Visit Provider Surgery | DX: Z12.11 Encounter for screening for malignant neoplasm of colon (principal) | CPT/HCPCS: 99204 ==

== ENCOUNTER 2025-01-24 06:57 | Day surgery (SDC) | payer OTHER, SELFPAY ==
[2025-01-24 07:13] VITALS: BP 132/78; PULSE 53; RESP 18; TEMP 36; O2SAT 99; BMI 26.9
--- NOTE | 2025-01-24 07:23 | P.HPUD_ITS ---
Surgery/Procedure H&P Update DATE OF PROCEDURE: January 24, 2025 DATE H&P PERFORMED: 12/26/24 H&P UPDATE INFORMATION: I have reviewed H&P completed within last 30 days, I have examined patient prior to procedure, No changes to prior documentation, H&P is in [facility] EMR on date indicated and Risks and benefits of the procedure reviewed PLANNED PROCEDURE: Operation Date: 01/24/25 08:20 Proposed Procedures p Colonoscopy 06529 G0121 Z12.11(Not Applicable) - Freddy Marino MD
--- NOTE | 2025-01-24 07:30 | ANES.PREANE2 ---
Pre-Anesthetic Assessment Height/Weight: Height 1.73 m Weight 80.286 kg Temp Pulse Resp BP Pulse Ox O2 Del Method 96.8 F L 53 L 18 132/78 99 Room Air 01/24/25 07:13 01/24/25 07:13 01/24/25 07:13 01/24/25 07:13 01/24/25 07:13 01/24/25 07:13 Operation Date: 01/24/25 08:20 Proposed Procedures p Colonoscopy 22794 G0121 Z12.11(Not Applicable) - Freddy Marino MD Familial anesthetic complications: None Was Beta Toma taken within 24 hours: Yes Was Clonidine taken within 24 hours: N/A Last intake: Intake Last Liquid Date 01/23/25 Last Liquid Time 20:00 Last Solid Date 01/22/25 Last Solid Time 15:30 Social Alcohol (A shot of whiskey nightly) and No tobacco Exam alert, oriented x 3, clear to auscultation bilaterally and regular rate & rhythm Airway Submandibular: within normal limits Cervical ROM: within normal limits Mallampati: Class II Dentition: full (Full top and bottom implants) History/ROS No significant history except as noted and No significant complaints Pulmonary Sleep Apnea (Wears CPAP) CV/HEM Arrythmia, Coronary Artery Disease, Hypertension and Myocardial Infarction (Stent placed 2021, triple bypass July 2022, last saw cardiology 3-4 weeks ago added lisinopril in the morning, able to walk 2 flights of stairs without stopping.) Conclusion: 1. Normal EKG response to Lexiscan infusion 2. No Lexiscan induced chest pain or cardiac arrhythmia. 3. Normal blood pressure and heart rate response. 4. Sestamibi/sestamibi perfusion scan pending; see separate report. CONCLUSIONS Normal left ventricular size and systolic function, EF 60%.mild left ventricular hypertrophy. No regional wall motion abnormalities. Possible grade 2 diastolic dysfunction. Mildly increased left atrial size. Thickened aortic valve. Trace aortic valve regurgitation. PA pressure seems within normal limits. Because of the poor Doppler signals, this could be misleading. There is no pericardial effusion. There are no intracardiac masses. Compared to the study from 10/19/2020, there may not be a significant change None reported Hepatic None reported GI Inconsistent bowel habits Metabolic Diabetes Mellitus, Hyperlipidemia and Thyroid Disease Musc/skel Osteoarthritis/DJD Neuropsych Anxiety (PTSD) and Neuropathy Demyelinating disease of RN INTEGRITY Anesthetic Plan ASA status: 3 Anesthesia: Anesthesia Evaluation, General and MAC Risk of > 500 ml blood loss (7ml/kg in children): No Other Pertinent Information History of throat cancer. Received immunotherapy and radiation. No difficulty swallowing and states he was intubated for CABG after receiving radiation and wasn't told he was a difficult intubation Medications/Allergies Home Medications ?Medication ?Instructions ?Recorded ?Confirmed ?Last Taken ?Type melatonin 3 mg capsule 6 mg PO BEDTIME 07/07/20 01/21/25 01/23/25 History omeprazole 20 mg tablet,delayed 20 mg PO QPM 07/07/20 01/21/25 01/23/25 History release gabapentin 300 mg capsule 600 mg PO TID@09/10/21 01/21/25 01/23/25 History cholecalciferol (vitamin D3) 50 4,000 unit PO QAM 03/11/22 01/21/25 01/23/25 History mcg (2,000 unit) tablet (Vitamin D3) atorvastatin 80 mg tablet 40 mg PO BEDTIME 07/29/22 01/21/25 01/23/25 History levothyroxine 125 mcg tablet 125 mcg PO QAM 07/29/22 01/21/25 01/24/25 History metoprolol succinate 50 mg 50 mg PO QAM 07/29/22 01/21/25 01/24/25 History tablet,extended release 24 hr omega-3 fatty acids 1,000 mg 1,000 mg PO BID 07/29/22 01/21/25 01/23/25 History capsule nitroglycerin 0.4 mg sublingual 0.4 mg sublingual Q5M PRN Chest 08/02/22 01/21/25 Unknown Rx tablet (Nitrostat) Pain #25 tabs mirtazapine 30 mg tablet 30 mg PO BEDTIME 09/10/22 01/21/25 01/23/25 History empagliflozin 25 mg tablet 12.5 mg PO QPM 10/19/23 01/21/25 01/22/25 History (Jardiance) calcium polycarbophil 625 mg tablet 1,250 mg PO DAILY 11/08/23 01/21/25 01/23/25 History insulin aspart U-100 100 unit/mL 8 unit SUBCUT QAM 11/08/23 01/21/2525 History (3 mL) subcutaneous pen (Novolog FlexPen U-100 Insulin aspart) primidone 50 mg tablet 100 mg PO TID 05/15/24 01/21/25 01/23/25 History galantamine 4 mg tablet 4 mg PO BID 90 days #180 tabs 10/17/24 01/21/25 01/23/25 Rx magnesium oxide 400 mg PO DAILY 10/17/24 01/21/25 01/23/25 History lisinopril 20 mg tablet 20 mg PO BID #180 tabs 11/21/24 01/21/25 01/23/25 Rx aspirin 325 mg tablet 325 mg PO DAILY 01/23/25 01/23/25 01/19/25 History Allergies Allergy/AdvReac Type Severity Reaction Status Date / Time No Known Allergies Allergy Verified 01/21/25 11:29 Current Medications Generic Name Dose Route Start Last Admin Trade Name Freq PRN Reason Stop Dose Admin Sodium Chloride 1,000 mls @ 15 mls/hr 01/24/25 07:02 01/24/25 07:20 Sodium Chloride 0.9% IV 01/25/25 07:01 15 mls/hr .Q24H PRN Administration COLONOSCOPY FLUIDS PFSH Anesthesia Medical History Atherosclerosis of coronary artery CABG x3, Dr. Cho, 08/23/2022 Hyperlipidemia Hypertension Squamous cell cancer of scalp and skin of neck Diverticul disease small and large intestine, no perforati or abscess Hernia Surgical History History of bowel resection Family History Father Suicide Psychiatric illness Mother Cancer Hypertension Social History Smoking and tobacco/nicotine status: former use of tobacco/nicotine Alcohol intake: current Substance/Drug Use: never Data Anesthesia Cardiac Studies: Echocardiogram 07/29/22 Echocardiogram Ultrasound 10/19/20 Sestamibi Stress Test (Cardiology) 07/29/22 Cardiac Event Monitor 05/14/21
--- NOTE | 2025-01-24 08:21 | ECG_ITS ---
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 Measurements Intervals [place] Rate: 50 P: 40 CO: 176 QRS: 52 QRSD: 99 T: 17 QT: 415 QTc: 382 Interpretive Statements SINUS BRADYCARDIA Compared to ECG 07/29/2022 16:01:45 No significant changes Electronically Signed On 01-25-2025 22:44:30 CDT by Triston Giron M.D. [email or web address] [id number]
[2025-01-24 09:04] LABS: Anion Gap 18.5 (5-19); Blood Urea Nitrogen 19 mg/dL (8-23); Calcium 9.6 mg/dL (8.5-10.5); Carbon Dioxide 22 mmol/L (22-29); Chloride 99 mmol/L (98-107); Creatinine Clr Calc Pharmacy 60.0383; Glucose 112 mg/dL (65-115); Osmolality Calculated 283 mOsm/kg (285-295); Potassium 4.5 mmol/L (3.5-5.1); Sodium 135 mmol/L (136-145)
[2025-01-24 10:06] VITALS: BP 101/56; PULSE 48; RESP 10; TEMP 36.1; O2SAT 96
[2025-01-24 10:20] VITALS: BP 122/70; PULSE 54; RESP 18; O2SAT 97
--- NOTE | 2025-01-24 10:47 | ANE.PACU2 ---
Inpatient post-anesthesia follow up: Airway intact: Yes Vital signs: Temperature 97.0 F Pulse Rate 54 Respiratory Rate 18 Blood Pressure 122/70 Pulse Oximetry 97 Oxygen Delivery Me thod Room Air Oxygen Flow Rate Fraction of Inspir ed Oxygen Hydration adequate: Yes Nausea and vomiting: No Pain level: 1 Mental status: Baseline
== END 2025-01-24 10:47 | disposition home or self-care (01) ==
PROVIDERS: Student in an Organized Health Care Education/Training Program; PCP Family Medicine; Visit Provider Surgery
PROC: 0DJD8ZZ Inspection of Lower Intestinal Tract, Via Natural or Artificial Opening Endoscopic (ICD-10-PCS; CPT 45378; principal; 2025-01-24 08:20)
DX: Z12.11 Encounter for screening for malignant neoplasm of colon (principal); K57.30 Diverticulosis of large intestine without perforation or abscess without bleeding; Z79.82 Long term (current) use of aspirin; Z79.4 Long term (current) use of insulin; K21.9 Gastro-esophageal reflux disease without esophagitis; I25.10 Atherosclerotic heart disease of native coronary artery without angina pectoris; I10 Essential (primary) hypertension; I25.2 Old myocardial infarction; Z95.5 Presence of coronary angioplasty implant and graft; E11.9 Type 2 diabetes mellitus without complications; E07.9 Disorder of thyroid, unspecified; E78.5 Hyperlipidemia, unspecified; Z85.818 Personal history of malignant neoplasm of other sites of lip, oral cavity, and pharynx; F41.9 Anxiety disorder, unspecified; G62.9 Polyneuropathy, unspecified
CPT/HCPCS: 36416; 45378; 80048; 82962; 93005; J2704; J7030